=== PATIENT | female | born 1935 | race Caucasian/White ===

== ENCOUNTER 2020-01-20 12:23 | Outpatient (CLI) | payer MEDICARE, SELFPAY ==
[2020-01-20 13:05] LABS: Basophils Absolute Auto 0.1 K/mm3 (0.0-0.1); Basophils Percent Auto 0.8 % (0.2-1.2); Eosinophils Absolute Auto 0.1 K/mm3 (0-0.3); Eosinophils Percent Auto 1.2 % (0-4.4); Hematocrit 33.2 % (37.0-47.0); Hemoglobin 10.9 g/dL (12.0-15.0); Immature Granulocyte Absolute 0.01 K/mm3 (0.00-0.031); Immature Granulocyte Percent A 0.2 % (0-0.5); Lymphocytes Absolute Auto 1.98 K/mm3 (0.9-3.2); Lymphocytes Percent Auto 30.9 % (18.3-44.2); Mean Corpuscular HGB Conc 32.8 g/dl (32-36); Mean Corpuscular Hemoglobin 32.2 pg (26-34); Mean Corpuscular Volume 98.2 fl (80-100); Mean Platelet Volume 11.8 fl (7.4-10.4); Monocytes Absolute Auto 0.5 K/mm3 (0.1-0.6); Monocytes Percent Auto 7.5 % (2.6-8.5); Neutrophils Absolute Auto 3.8 K/mm3 (1.3-6.7); Neutrophils Percent Auto 59.4 % (45.5-73.1); Platelet Count Result 190 k/mm3 (150-375); Red Blood Count 3.38 M/mm3 (4.2-5.4); White Blood Count 6.4 K/mm3 (4.5-10.0)
[2020-01-20 13:07] LABS: Add Urine Microscopic? YES; Appearance Urine Clear (Clear); Bilirubin Urine Negative (Negative); Blood Urine Negative (Negative); Color Urine Straw (Yellow); Glucose Urine UA Negative (Negative); Ketones Urine Negative (Negative); Leukocyte Esterase Ur Negative LEU/UL (NEGATIVE); Mucus Urine Rare /lpf; Nitrate Urine Negative (Negative); Protein Urine Negative (Negative); Specific Grav Ur 1.013 (1.001-1.035); Squamous Epithelial Cell Urine Rare /hpf (Few); Urobilinogen Urine Negative mg/dL (<2.0); WBC Urine 0-3 /hpf (0-3)
[2020-01-20 13:48] LABS: Alanine Aminotransferase 9 U/L (4-35); Albumin Level 3.9 g/dL (3.5-5.1); Alkaline Phosphatase 64 U/L (38-126); Aspartate Amino Transferase 22 U/L (14-36); Bilirubin,Total 0.3 mg/dL (0.2-1.3); Blood Urea Nitrogen 25 mg/dL (7-17); CRP < 0.5 mg/dL (<1.0); Carbon Dioxide 24 mmol/L (22-30); Chloride 104 mmol/L (98-107); Cholesterol 193 mg/dL (0-200); Estimated Glomerular Filt Rate 53; Glucose 94 mg/dL (65-105); HDL Direct 64 mg/dL; Magnesium 1.8 mg/dL (1.6-2.3); Sodium 136 mmol/L (137-145); Triglycerides 265 mg/dL (<150)
[2020-01-20 13:53] LABS: LDL Cholesterol Direct 75 mg/dL
[2020-01-20 14:00] LABS: Free T4 Free Thyroxine 1.14 ng/mL (0.78-2.19)
[2020-01-20 14:12] LABS: Thyroid Stimulating Hormone 0.561 uIU/mL (0.465-4.680)
== END 2020-01-20 12:24 | disposition home or self-care (01) ==
PROVIDERS: PCP Internal Medicine; Visit Provider Internal Medicine
DX: E03.9 Hypothyroidism, unspecified (principal); I10 Essential (primary) hypertension; I25.10 Atherosclerotic heart disease of native coronary artery without angina pectoris; I49.9 Cardiac arrhythmia, unspecified
CPT/HCPCS: 36415; 80053; 80061; 81001; 83735; 84439; 84443; 85025; 86140

== ENCOUNTER 2020-01-21 08:30 | Outpatient (CLI) | payer MEDICARE, SELFPAY ==
--- NOTE | ~2020-01-21 | NM_ITS ---
EXAMINATION: NM herson stress w perfusion DATE: 01/21/2020 13:48 INDICATION: Abnormal electrocardiogram. TECHNIQUE: Rest images were obtained following intravenous administration of 9.3 mCi Tc99m tetrofosmi n (Myoview). The patient was infused intravenously with Lexiscan (regadenoson). Then, 27.0 mCi Tc99m tetrofosmin (Myoview) was administered intravenously, and stress images were obtained. Data was recon structed into short axis and horizontal and vertical long axis SPECT images. Gating was unsuccessful. COMPARISON: None. FINDINGS: There is no definite reversible or fixed perfusion abnormality to suggest ischemia or infar ction. There is no segmental wall motion abnormality. IMPRESSION: 1. No definite ischemia or infarct. 2. Ejection fraction was not measured due to unsuccessful gating. Reviewed, dictated and finalized at location A.
--- NOTE | 2020-01-21 08:57 | ECHO_ITS ---
Patient Info Name: Angie Awan Age: 84 years : 1935 Gender: Female Ht: 61 in Wt: 141 lbs BSA: 1.68 m2 HR: 73 bpm BP: 141 / 83 mmHg Technical Quality: Good Exam Date: 01/21/2020 9:03 AM Exam Location: [facility] Patient Status: Outpatient Admit Date: 01/21/2020 Staff Ordering Physician: Meliton Reid MD Emergency Department Manager: Clara Verma RDCS Attending Provider: Meliton Reid MD Referring Physician: Franklin CHO; Exam Type: CA echo doppler color flow Study Info Indications - htn cardiac arrthythmia Complete two-dimensional, color flow and Doppler transthoracic echocardiogram is performed. Summary 1. Left ventricular chamber dimension is normal. 2. Left ventricular systolic function is normal, estimated at 60-65%. 3. The left ventricular diastolic function is grade II diastolic dysfunction. 4. There is moderate aortic valve sclerosis. 5. There is trace aortic valve regurgitation. 6. There is trace mitral valve regurgitation. 7. There is mild tricuspid valve regurgitation. 8. Mild pulmonary hypertension, estimated pulmonary arterial systolic pressure is 44 mmHg. 9. Dilated inferior vena cava with >50% collapse upon inspiration consistent with elevated right atrial pressure, 10 mmHg. Left Ventricle Tissue doppler is not performed. Left ventricular chamber dimension is normal. Left ventricular systolic function is normal, estimated at 60-65%. The left ventricular diastolic function is grade II diastolic dysfunction. Right Ventricle Right ventricular chamber dimension is normal. Right ventricular systolic function is normal. Left Atria Left atrial chamber dimension is normal. Right Atria Right atrial chamber dimension is normal. Aortic Valve The aortic valve is trileaflet. There is moderate aortic valve sclerosis. There is no aortic valve stenosis. There is trace aortic valve regurgitation. Pulmonic Valve There is no pulmonic regurgitation. Mitral Valve There is no mitral valve stenosis. There is trace mitral valve regurgitation. Tricuspid Valve There is mild tricuspid valve regurgitation. Mild pulmonary hypertension, estimated pulmonary arterial systolic pressure is 44 mmHg. Pericardium/Pleural There is no pericardial effusion. Inferior Vena Cava Dilated inferior vena cava with >50% collapse upon inspiration consistent with elevated right atrial pressure, 10 mmHg. Aorta The aortic root size at the sinus of Valsalva is normal. Left Ventricular Outflow Tract Name Value Normal LVOT 2D LVOT Diameter 2.0 cm LVOT Doppler LVOT Peak Gradient 4 mmHg LVOT Mean Gradient 2 mmHg LVOT VTI 22 cm LVOT VTI/AV VTI Ratio 0.7 LVOT Stroke Volume 67 ml LVOT CO 12.6 l/min LVOT CI 7.5 l/min/m2 Pulmonic Valve Name Value Normal
--- NOTE | 2020-01-21 08:57 | EST_ITS ---
Patient Info Name: Angie Awan Age: 84 years : 1935 Gender: Female Ht: 61 in Wt: 141 lbs BSA: 1.68 m2 Exam Date: 01/21/2020 11:01 AM Exam Location: [facility] Stress Patient Status: Outpatient Admit Date: 01/21/2020 Staff Ordering Physician: Meliton Reid MD Attending Provider: Meliton Reid MD Exercise Technologist: Arnoldo Gruber RDCS, RT Exercise Physician: Tylor Dowell DO Exam Type: CA stress herson w NM Study Info A regadenoson stress test was performed. Summary 1. 1. Negative lexiscan stress test for ischemic ST changes by ECG criteria. 2. 2. Baseline hypertension. 3. 3. Nuclear scan to follow and will be reported separately. Please correlate with it. 4. 4. Patient informed of the above results. Protocol: Lexiscan Stress ECG Details Stage: REST Duration (min): 1 min : 33 sec HR (bpm): 78 SBP (mmHg): 170 DBP (mmHg): 98 Stage: REST Duration (min): 19 min : 43 sec HR (bpm): 85 SBP (mmHg): 170 DBP (mmHg): 98 Stage: STAGE 1 Duration (min): 1 min : 0 sec HR (bpm): 105 SBP (mmHg): 177 DBP (mmHg): 103 Stage: RECOVERY Duration (min): 1 min : 0 sec HR (bpm): 106 SBP (mmHg): 177 DBP (mmHg): 103 Stage: RECOVERY Duration (min): 2 min : 0 sec HR (bpm): 103 SBP (mmHg): 177 DBP (mmHg): 103 Stage: RECOVERY Duration (min): 3 min : 0 sec HR (bpm): 102 SBP (mmHg): 153 DBP (mmHg): 90 Stage: RECOVERY Duration (min): 3 min : 20 sec HR (bpm): 101 SBP (mmHg): 153 DBP (mmHg): 90 Rest HR: 85 bpm Peak HR: 108 bpm Rest Sys BP: 170 mmHg Peak Sys BP: 177 mmHg Max Pred HR: 135 bpm % Max Pred HR: 80 % Target HR: 115 bpm Max RPP: 19,116 bpm*mmHg Termination Reason: Completed protocol Cardiac Symptoms: Shortness of breath, Stomach discomfort Total Time: 1 min : 0 sec Rest Wallace BP: 98 mmHg Peak Wallace BP: 103 mmHg Total Dose: 0.4 mg Resting ECG Sinus rhythm with supraventricular bigeminy, IRBBB. Stress ECG No ST changes. Arrhythmias None. Report Signatures
--- NOTE | 2020-01-26 13:03 | WPDHOLTEREM ---
Holter/Event Monitor Holter/Event Monitor Date of procedure: 01/21/20 Procedure Type: 48 hour holter monitor Indications: Hypertension Conclusion: 1. 48 hour holter monitor on 01/26/20. 2. Predominant rhythm is sinus rhythm. HR range 53-128 bpm; average HR 80 bpm. 3. There are 12,309 premature supraventricular complexes, 586 supraventricular couplets, 23,651 supraventricular bigeminy and 1,231 supraventricular trigeminy. There are 79 episodes atrial tachycardia, fastest at 185 bpm and longest lasting 4 beats. 4. No premature ventricular complexes. No ventricular tachycardia. 5. No sinoatrial or atrioventricular blocks. No significant pauses greater than 2 seconds. 6. Patient reports symptoms of chest tightness and hard breathing which demonstrate sinus rhythm, HR range 87-105 bpm and some episodes of PAC's and supraventricular bigeminy.
== END 2020-01-21 08:31 | disposition home or self-care (01) ==
PROVIDERS: PCP Internal Medicine; Visit Provider Internal Medicine
DX: I10 Essential (primary) hypertension (principal); I25.10 Atherosclerotic heart disease of native coronary artery without angina pectoris; I49.9 Cardiac arrhythmia, unspecified; R94.31 Abnormal electrocardiogram [ECG] [EKG]
CPT/HCPCS: 78452; 93017; 93225; 93226; 93306; A9502; J2785

== ENCOUNTER 2020-02-09 11:00 | Outpatient (CLI) | payer MEDICARE, SELFPAY ==
[2020-02-09 11:30] LABS: Blood Urea Nitrogen 28 mg/dL (7-17); Calcium 9.4 mg/dL (8.4-10.2); Carbon Dioxide 29 mmol/L (22-30); Chloride 105 mmol/L (98-107); Estimated Glomerular Filt Rate 60; Glucose 101 mg/dL (65-105); Potassium 4.2 mmol/L (3.4-5.0); Sodium 138 mmol/L (137-145)
== END 2020-02-09 11:01 | disposition home or self-care (01) ==
LOC: ANHLAB 11:03
PROVIDERS: PCP Internal Medicine; Visit Provider Internal Medicine
DX: I27.20 Pulmonary hypertension, unspecified (principal)
CPT/HCPCS: 36415; 80048

== ENCOUNTER 2020-06-09 09:31 | Inpatient (IN) | payer MEDICARE, SELFPAY ==
[2020-06-09] VITALS (14 sets, daily range): BP systolic 117–154; BP diastolic 59–83; PULSE 69–95; RESP 12–20; TEMP 36.1–36.7; O2SAT 97–100; BMI 25.4
--- NOTE | ~2020-06-09 | XR_ITS ---
EXAMINATION: XR chest 2V DATE: 06/09/2020 10:47 INDICATION: Breast pressure, diaphoresis and hypotension TECHNIQUE: frontal and lateral views of the chest were obtained. COMPARISON: None FINDINGS: Mild reticular opacities at the bilateral lung bases most likely mild pulmonary edema or atelectasis with differential including less likely pneumonia. No pleural effusion or pneumothorax. The cardiomed iastinal silhouette is normal. Mild S-shaped thoracolumbar scoliosis with moderate spondylosis. Arlin cystectomy clips in the right upper quadrant. IMPRESSION: 1. Mild bibasilar reticular opacities and favor mild pulmonary edema and/or atelectasis over pneumoni a. Reviewed, dictated and finalized at location A. IMPRESSION: 1. Mild bibasilar reticular opacities and favor mild pulmonary edema and/or ate lectasis over pneumonia.
--- NOTE | ~2020-06-09 | CT_ITS ---
EXAMINATION: CT abdomen pelvis w con DATE: 06/09/2020 11:55 INDICATION: Epigastric abdominal pain. Vomiting. TECHNIQUE: Computed tomography (CT) of the abdomen and pelvis was performed with 100 mL Omnipaque 350 intravenous contrast. Automated exposure control and iterative reconstruction technique were employe d. The dose-length product was 377.03 mGy-cm. COMPARISON: None. FINDINGS: The visualized portions of the lung bases demonstrate mild atelectasis. There is mild emphy sema. No pleural effusion. The heart size is normal. There are coronary artery calcifications. There are calcifications of the aortic valve. No pericardial effusion. The liver demonstrates focal steatos is adjacent to the falciform ligament. Pneumobilia is noted, likely secondary to sphincterotomy. Ther e are changes of cholecystectomy. The spleen is normal. The pancreatic duct is dilated to 7 mm in the head of the pancreas. The adrenal glands are normal. There is cortical thinning of the kidneys. Ther e are bilateral inguinal hernias containing fat. There is wall thickening of the descending and sigmo id colon. There is liquid stool in the colon suggesting diarrhea. The appendix is normal. There are n o pathologically enlarged lymph nodes. There is a small volume of pelvic ascites. There are changes o f ventral hernia repair. There is severe thoracolumbar spondylosis. IMPRESSION: 1. Dilated pancreatic duct, likely chronic pancreatitis. 2. Mild wall thickening of the descending and sigmoid colon, consistent with colitis. Reviewed, dictated and finalized at location B. IMPRESSION: 1. Dilated pancreatic duct, likely chronic pancreatitis. 2. Mild wall thickening of the descending and sigmoid colon, consistent with co litis.
--- NOTE | 2020-06-09 09:42 | ECG_ITS ---
Measurements Intervals [place] Rate: 66 P: 37 SC: 144 QRS: 3 QRSD: 93 T: 43 QT: 404 QTc: 425 Interpretive Statements SINUS RHYTHM SUPRAVENTRICULAR BIGEMINY BASELINE ARTIFACT- II, III, AVL, AVF ABNORMAL ECG Electronically Signed On 06-09-2020 10:22:30 CDT by Tylor Dowell D.O.
--- NOTE | 2020-06-09 09:54 | ED.CHESTPAIN ---
HPI - Chest Pain General Chief Complaint: Chest Pain Stated Complaint: N/V/CP Time Seen by Provider: 06/09/20 09:34 Source: patient Mode of arrival: EMS Limitations: no limitations History of Present Illness HPI narrative: This patient is an 84 year old female who presents for evaluation of nausea , vomiting and chest pressure. PAtient states approximately 1 hour ago she developed nausea, vomiting , chest pressure. She states this occurred 1 hours after eating her breakfast. She states she was washing her dishes when she developed a sensation to have a bowel movement. While she was sitting on the toilet, she developed nausea, sweating and chest pressure. She had multiple episodes of vomiting. She states she has had similar episodes over the past few months, but she thought it was the flu. She has also been evaluated by her PCP, Dr. Reid, and she has had a stress test and echo. She was told she had an issue with a valve and she was started on carvedilol. Related Data Home Medications Medication Instructions Recorded Confirmed aspirin 81 mg tablet,delayed 81 mg PO DAILY 01/27/20 06/09/20 release acetaminophen [Tylenol Extra 1,000 mg PO TID 06/09/20 06/09/20 Strength] lidocaine 1 patch TOPICAL DAILY PRN 06/09/20 06/09/20 Allergies Allergy/AdvReac Type Severity Reaction Status Date / Time pregabalin [From Lyrica] Allergy Mild edema Verified 06/09/20 16:25 amoxicillin Allergy Unknown ITCHING Verified 06/09/20 16:25 nifedipine Allergy Unknown VOMITING Verified 06/09/20 16:25 gabapentin AdvReac Mild edema Verified 06/09/20 16:25 Review of Systems Review of Systems: All systems reviewed & are unremarkable except as noted in HPI and below Constitutional: Constitutional: Reports weakness Cardiovascular: Cardiovascular: Reports chest pain Respiratory: Respiratory: Denies cough, Denies dyspnea and Denies wheezing Gastrointestinal: Gastrointestinal: Denies diarrhea, Reports nausea and Reports vomiting PMFSH Past Medical History Medical History (Updated 06/09/20 @ 19:17 by Fanny Queen MD) Abnormal EKG Anemia Arrhythmia ASHD (arteriosclerotic heart disease) BMI 27.0-27.9,adult Costochondritis DJD (degenerative joint disease) Follow up Grade II diastolic dysfunction HTN (hypertension) Hyperlipidemia Hypothyroidism Left chest pressure Light-headedness Low back pain Pulmonary hypertension Resting tremor Spinal stenosis SVT (supraventricular tachycardia) Surgical History Surgical History H/O: hysterectomy History of bunionectomy History of tonsillectomy and adenoidectomy Hx laparoscopic cholecystectomy Social History Social History (Updated 01/20/20 @ 11:30 by Jenn Pearce LPN) Smoking status: Never smoker Second hand tobacco smoke exposure: No Alcohol intake: never Substance use: never Gender identity (if verbalized by the patient): Female Spiritual care concerns: No Exam Const: General: no acute distress and alert Orientation/consciousness: patient oriented x3 HENMT: Face and sinus: face symmetric Throat: posterior oropharynx normal and uvula midline Eyes: Pupils: Equal, round and reactive pupils present EOM: EOMs intact bilaterally Neck: Neck: normal visual inspection Chest: Chest palpation & inspection: normal inspection of the chest Resp: Effort & Inspection: normal respiratory effort, no retractions and no use of accessory muscles Auscultation: clear to auscultation bilaterally Cardio: Rate: regular rate Rhythm: regular rhythm Heart sounds: Murmur heart sound present GI: GI Palp: Yes Soft to palpation, Yes Tenderness to palpation present (GI) (epigastric), No Guarding due to palpation present (GI) and No Rigid due to palpation Auscultation: normal bowel sounds Skin: General skin exam: normal color Rashes: no rashes Neuro: General: patient oriented x3 and moves all extremities Psych:
[2020-06-09 10:12] LABS: Basophils Absolute Auto 0.1 K/mm3 (0.0-0.1); Basophils Percent Auto 0.8 % (0.2-1.2); Eosinophils Absolute Auto 0.1 K/mm3 (0-0.3); Eosinophils Percent Auto 1.5 % (0-4.4); Hematocrit 36.1 % (37.0-47.0); Immature Granulocyte Absolute 0.02 K/mm3 (0.00-0.031); Immature Granulocyte Percent A 0.3 % (0-0.5); Lymphocytes Absolute Auto 1.86 K/mm3 (0.9-3.2); Lymphocytes Percent Auto 30.3 % (18.3-44.2); Mean Corpuscular HGB Conc 33.2 g/dl (32-36); Mean Corpuscular Hemoglobin 32.4 pg (26-34); Mean Corpuscular Volume 97.6 fl (80-100); Mean Platelet Volume 10.2 fl (7.4-10.4); Monocytes Absolute Auto 0.2 K/mm3 (0.1-0.6); Monocytes Percent Auto 3.9 % (2.6-8.5); Neutrophils Absolute Auto 3.9 K/mm3 (1.3-6.7); Neutrophils Percent Auto 63.2 % (45.5-73.1); Platelet Count Result 273 k/mm3 (150-375); White Blood Count 6.1 K/mm3 (4.5-10.0)
[2020-06-09 10:20] LABS: Prothrombin Time 12.6 Seconds (11.1-14.7)
[2020-06-09 10:21] LABS: Partial Thromboplastin Time 21.9 SECONDS (22.3-36.8)
[2020-06-09 10:26] LABS: Alanine Aminotransferase 13 U/L (4-35); Albumin Level 3.9 g/dL (3.5-5.1); Alkaline Phosphatase 64 U/L (38-126); Anion Gap 9 mmol/L (8-16); Aspartate Amino Transferase 29 U/L (14-36); Bilirubin,Total 0.6 mg/dL (0.2-1.3); Blood Urea Nitrogen 25 mg/dL (7-17); Calcium 9.1 mg/dL (8.4-10.2); Carbon Dioxide 21 mmol/L (22-30); Chloride 108 mmol/L (98-107); Estimated CRCL calculation 29 ml/min; Estimated Glomerular Filt Rate 53; Glucose 151 mg/dL (65-105); Lipase 529 U/L (23-300); Potassium 3.8 mmol/L (3.4-5.0); Sodium 138 mmol/L (137-145)
[2020-06-09 10:37] LABS: Troponin I < 0.012 ng/mL (0.000-0.034)
[2020-06-09] MEDS: metroNIDAZOLE 500 MG/ISO 100ML 500 MG/100 ML BAG 100 MG IVPB (12:46)
[2020-06-09 13:22] LABS: Troponin I < 0.012 ng/mL (0.000-0.034)
[2020-06-09] MEDS: SODIUM CHLORIDE 0.9% IV 1,000 ML 125 ML IV CONT (15:54)
--- NOTE | 2020-06-09 16:23 | ADMGEN ---
This patient, Angie Awan, was admitted to IMU Room 231-01 on 06-09-2020 at 1425. Patient/family oriented to hospital policies and general routines including ID bracelet, bed and alarms, visiting hours, pain management, procedures, bathroom and other care routines, personal items, smoking policy, room service/diet, and visiting hours. Valuables list has been completed. Information on how to activate the Rapid Response Team has been discussed. Patient/Family are encouraged to report perceived risks to care and to ask questions if they do not understand what they are told or what they should do.
--- NOTE | 2020-06-09 17:30 | PM.IMHP ---
H&P: HPI History of Present Illness Date/Time: 06/09/20 17:00 Chief complaint: Nausea, vomiting, diarrhea. Narrative: Angie Awan is a pleasant 84-year-old female with GERD, hypertension, hyperlipidemia, hypothyroidism, and spinal stenosis with chronic back pain who presented to the emergency department earlier this morning via EMS from home for evaluation of nausea, vomiting, and diarrhea. She was in her usual state of health when she woke this morning and had breakfast to consist of a scrambled egg, 2 cups of black coffee, and a doughnut, which took the place of her usual toast. Perhaps an hour after eating breakfast and while cleaning up the kitchen she developed extreme nausea, perfused sweats, and mild midsternal heaviness. Shortly thereafter her stomach started to cramp and she had 3 violent episodes of emesis and diarrhea. She was lightheaded thereafter and some how made it to the living room to take her blood pressure, which was reportedly 55/22. eventually she called the ambulance as she was unable to get a hold of her children, and she was brought in for evaluation. Blood pressure on EMS arrival was 82/64, and she was given aspirin and Zofran. It is noted that she told EMS that her chest pressure was rated 10/10, however she tells me that she was not having pain in that the heaviness was mild. Her EKG and troponins were unremarkable but she was found to have evidence of chronic pancreatitis on CT of the abdomen and pelvis as well as mild wall thickening of the descending and sigmoid colon consistent with colitis. With further questioning, she reports having an episode of pancreatitis a little over 10 years ago after an EGD (although it sounds as though she may have had an ERCP at that time) and she goes on to say that this episode that she had today is not at all similar to when she had the pancreatitis. Additionally, she mentions that this is the 3rd episode of the symptoms since Sunday, and they have all occurred after breakfast. Currently she has no active complaints. She denies fever, chills, and sweats. No recent travel, sick contacts, or antibiotic use. She has not had exertional chest pain in fact reports having and negative stress test within the past several months. Interestingly, she denies GERD and indigestion symptoms and has no history of gastritis or ulcers. She noticed no blood or mucus in her stool and has not had loose stools prior to today. No hematemesis, melena, or hematochezia. Review of Systems Review of Systems: Narrative: Twelve systems were reviewed with pertinent positives and negatives as per HPI. No headache or vertigo. No focal weakness or paresthesias. She denies orthopnea, PND, and lower extremity edema. She will get somewhat short of breath when walking to the mailbox and back, but reports that it is a long driveway and does have an incline. This is not new and is unchanged. She denies cough. No dysuria. Except as documented, all other systems were reviewed and are negative. [facility] Past Medical History Medical History (Updated 06/09/20 @ 20:54 by Roseann Belcher PA-C) Anemia Gastroesophageal reflux disease Grade II diastolic dysfunction Echocardiogram in January 2020 showed normal left ventricular chamber size and dimension with normal systolic function and an estimated ejection fraction of 60 to 65%. Grade 2 diastolic dysfunction also noted. Hyperlipidemia Hypertension Hypothyroidism Pulmonary hypertension Echocardiogram in January 2020 showed mild pulmonary hypertension with an estimated pulmonary arterial systolic pressure of 44 mmHg. Resting tremor Spinal stenosis With chronic low back pain for which she receives epidural injections on occasion. Surgical History Surgical History (Updated 06/09/20 @ 20:37 by Roseann Belcher PA-C) History of bunionectomy of both great toes History of hysterectomy History of laparoscopic cholecystectomy History of squamous cell carcinoma exc
[2020-06-09] MEDS: ACETAMINOPHEN 500 MG TABLET 1000 MG PO (22:11)
[2020-06-09] MEDS: carvediloL 6.25 MG TABLET PO (22:12)
[2020-06-10] VITALS (13 sets, daily range): BP systolic 122–144; BP diastolic 57–75; PULSE 72–88; RESP 18–20; TEMP 36.3–37.1; O2SAT 96–100
[2020-06-10] MEDS: SODIUM CHLORIDE 0.9% IV 1,000 ML 75 ML IV CONT (02:24)
[2020-06-10 05:08] LABS: Basophils Percent Auto 0.6 % (0.2-1.2); Eosinophils Absolute Auto 0.1 K/mm3 (0-0.3); Eosinophils Percent Auto 0.9 % (0-4.4); Hematocrit 30.7 % (37.0-47.0); Hemoglobin 10.2 g/dL (12.0-15.0); Immature Granulocyte Absolute 0.02 K/mm3 (0.00-0.031); Immature Granulocyte Percent A 0.3 % (0-0.5); Lymphocytes Absolute Auto 1.66 K/mm3 (0.9-3.2); Lymphocytes Percent Auto 23.7 % (18.3-44.2); Mean Corpuscular HGB Conc 33.2 g/dl (32-36); Mean Corpuscular Hemoglobin 32.2 pg (26-34); Mean Corpuscular Volume 96.8 fl (80-100); Mean Platelet Volume 10.4 fl (7.4-10.4); Monocytes Absolute Auto 0.6 K/mm3 (0.1-0.6); Neutrophils Absolute Auto 4.7 K/mm3 (1.3-6.7); Neutrophils Percent Auto 66.5 % (45.5-73.1); Platelet Count Result 221 k/mm3 (150-375); Red Blood Count 3.17 M/mm3 (4.2-5.4)
[2020-06-10 05:29] LABS: Alanine Aminotransferase 11 U/L (4-35); Albumin Level 3.3 g/dL (3.5-5.1); Alkaline Phosphatase 51 U/L (38-126); Anion Gap 5 mmol/L (8-16); Aspartate Amino Transferase 24 U/L (14-36); Bilirubin,Total 0.4 mg/dL (0.2-1.3); Blood Urea Nitrogen 18 mg/dL (7-17); Calcium 8.5 mg/dL (8.4-10.2); Carbon Dioxide 22 mmol/L (22-30); Chloride 110 mmol/L (98-107); Estimated CRCL calculation 32 ml/min; Estimated Glomerular Filt Rate 60; Glucose 102 mg/dL (65-105); Lipase 226 U/L (23-300); Magnesium 1.4 mg/dL (1.6-2.3); Potassium 3.8 mmol/L (3.4-5.0); Sodium 137 mmol/L (137-145)
[2020-06-10] MEDS: ACETAMINOPHEN 500 MG TABLET 1000 MG PO ×3 (06:20→20:59)
[2020-06-10] MEDS: LEVOTHYROXINE SODIUM 50 MCG TABLET PO (06:20)
--- NOTE | 2020-06-10 06:23 | PC.NURSE ---
06/10/20:0623: patient c/o chest pressure that lasted a couple seconds. she states that she had 3 episodes during the night and was told by lalo to tell us. but she forgets to tell us until much later after the event is done.
[2020-06-10] MEDS: PANTOPRAZOLE SODIUM IV 40 MG VIAL IV PUSH (08:49)
[2020-06-10] MEDS: MAGNESIUM SULF 2 GM/WATER 50ML 2 GM/50 ML BAG IVPB (08:50)
[2020-06-10] MEDS: CYANOCOBALAMIN 1,000 MCG TABLET 1000 MCG PO (08:55)
[2020-06-10] MEDS: carvediloL 6.25 MG TABLET PO ×2 (08:55→20:59)
[2020-06-10] MEDS: lisinopriL 10 MG TABLET PO (08:55)
[2020-06-10] MEDS: POTASSIUM CHLORIDE 10 MEQ TABLET.ER PO (08:55)
[2020-06-10] MEDS: ASPIRIN 81 MG ENTERIC TABLET PO (08:56)
[2020-06-10] MEDS: ATORVASTATIN 20 MG TABLET PO (08:56)
[2020-06-10] MEDS: FUROSEMIDE 20 MG TABLET PO (08:56)
[2020-06-10] MEDS: CHOLECALCIFEROL 1,000 UNITS TABLET 1000 UNITS PO (08:56)
--- NOTE | 2020-06-10 11:38 | PM.IMPN ---
Progress Note: A&P Assessment and Plan (1) Colitis: Code(s): K52.9 - Noninfective gastroenteritis and colitis, unspecified Status: Acute Assessment and Plan: CT abd/pelvis revealed mild wall thickening of the descending and sigmoid colon, consistent with colitis. She has tenderness to the LLQ on physical exam. I suspect that her nausea, vomiting, and diarrhea are due to colitis. She received levaquin and metronidazole in the ED. The case was discussed with GI and we will plan to resume IV levaquin and IV flagyl. GI input is appreciated. Differential includes infectious versus ischemic etiology. She has improved significantly. Continue conservative management with zofran as needed for nausea and analgesics as needed for pain. Stool cultures and occult stool testing were ordered and are pending should she have additional diarrhea. Plan to advance diet as tolerated. (2) Chest discomfort: Code(s): R07.89 - Other chest pain Status: Acute Assessment and Plan: Her chest discomfort is not consistent with acute coronary syndrome as serial troponins were negative and EKG had no ST/T changes. She had a Lexiscan stress test done in spring 2019 which was negative for ischemia as well as an echocardiogram which showed normal LV systolic function with EF 60-65% and grade II diastolic dysfunction. Her pain is reproducible to palpation. She was diagnosed with costochondritis by her PCP and reports relief with ice/heat and lidocaine patches. Plan to continue supportive care. Continue telemetry and monitor for any new symptoms. (3) Dehydration: Code(s): E86.0 - Dehydration Status: Resolved Assessment and Plan: She received judicious IV fluid rehydration. She appears adequately hydrated and is tolerating PO intake well. She has no significant ongoing GI losses at this time. Plan to discontinue IV fluids. (4) Abnormal computed tomography of abdomen and pelvis: Code(s): R93.5 - Abnormal findings on diagnostic imaging of other abdominal regions, including retroperitoneum Status: Acute Assessment and Plan: CT of the abdomen and pelvis shows dilated pancreatic duct, likely chronic pancreatitis as well as colitis. Dr. Rodrigez is on board and input is appreciated. Lipase and LFTs are normal. Her sx are felt to be due to colitis. (5) Hypertension: Code(s): I10 - Essential (primary) hypertension Status: Chronic Assessment and Plan: She was hypotensive on EMS arrival, likely related to significant fluid loss with vomiting and diarrhea. She also may have had a component of the vagal response as well. Blood pressures have normalized and are stable. Her antihypertensives were resumed today. Blood pressures were reviewed and at target. Plan to continue carvedilol, furosemide, and lisinopril. (6) Gastroesophageal reflux disease: Code(s): K21.9 - Gastro-esophageal reflux disease without esophagitis Status: Chronic Assessment and Plan: Chronic with no acute issues. Continue omeprazole. (7) Hypothyroidism: Code(s): E03.9 - Hypothyroidism, unspecified Status: Chronic Assessment and Plan: Chronic with no acute issues. Plan to check TSH. Continue levothyroxine. Subjective Date/time seen: 06/10/20 11:38 Interval history: Mrs. Awan is an 84 y.o. female who is seen in follow-up for colitis. She reports no further episodes of emesis or nausea today. She had one small bowel movement which she reports was mucous with dark brown/red substance which appeared to be blood. She reports no further episodes of diarrhea today. She is tolerating a full liquid diet well. She denies fever and chills. She has no urinary complaints. She reports a mld headache which resolved with tylenol. She reports a few brief episodes of chest discomfort which is reproducible to touch, non-radiating, and not associated with palpitations or dyspnea
--- NOTE | 2020-06-10 11:46 | WPDGICN ---
Assessment and Plan Assessment and plan (1) Colitis: Code(s): K52.9 - Noninfective gastroenteritis and colitis, unspecified Status: Acute Assessment and Plan: could be inectious but also ischemic is in differential, empirically on antibiotics if more diarrhea then check stool studies liquid diet for now and advance as tolerated (2) Dehydration: Code(s): E86.0 - Dehydration Status: Acute Assessment and Plan: treated with fluids, she was lightheaded on presentation with hypotension, better now (3) Nausea & vomiting: Code(s): R11.2 - Nausea with vomiting, unspecified Status: Acute Assessment and Plan: improved (4) Abnormal computed tomography of abdomen and pelvis: Code(s): R93.5 - Abnormal findings on diagnostic imaging of other abdominal regions, including retroperitoneum Status: Acute (5) Chronic pancreatitis: Code(s): K86.1 - Other chronic pancreatitis Status: Acute Assessment and Plan: lipase and liver enzymes normal, I think symptoms mostly from colitis GI Consult Note Consult date/time: 06/10/20 11:46 Reason for consult: diarrhea, n/v HPI: Angie Awan is a 84 year old female with history of GERD, hypertension, hyperlipidemia, hypothyroidism, and spinal stenosis who came to the emergency department via EMS from home after nausea, vomiting, and diarrhea. Yesterday morning about 1 hour after having breakfast she developed extreme nausea, sweating, and mild midsternal heaviness. Then had abdominal cramping with 3 episodes of emesis and violent diarrhea. She was lightheaded, then took her blood pressure at home which was low 55/22. She called the ambulance and brought here. Now she is feeling better, less nauseous, some chest discomfort. CT scan showed left sided colitis, also dilated PD probably consistent with chronic pancreatitis (she remembers having scope ? ERCP about 50 years ago and admitted for pancreatitis but none since then). She had 2 similar episodes like these earlier this year. Liver enzymes and lipase normal, also troponins. Review of Systems Constitutional: Constitutional: Reports chills and Denies headache(s) Eyes: Eyes: Denies blurry vision ENT: Reports Normal hearing present, Denies headache(s) and Denies neck pain Cardiovascular: Cardiovascular: Denies chest pain, Reports lightheadedness and Denies dyspnea Respiratory: Respiratory: Denies dyspnea Gastrointestinal: Gastrointestinal: Reports diarrhea, Reports nausea and Reports vomiting Genitourinary: Genitourinary: Denies dysuria Musculoskeletal: Musculoskeletal: Denies neck pain Integumentary/Breasts: Skin/Breast: Denies dry skin Neurologic: Reports Normal hearing present, Denies headache(s) and Denies weakness Psychiatric: Psychiatric: Denies anxiety Endocrine: Endocrine: Denies change in body appearance Hematologic/Lymphatic: Hematologic/Lymphatic: Denies easy bleeding Allergic/Immunologic: Allergic/Immunologic: Denies urticaria PMFSH Past Medical History Medical History (Updated 06/10/20 @ 11:52 by Meliton Rodrigez MD) Anemia Colitis Gastroesophageal reflux disease Grade II diastolic dysfunction Echocardiogram in January 2020 showed normal left ventricular chamber size and dimension with normal systolic function and an estimated ejection fraction of 60 to 65%. Grade 2 diastolic dysfunction also noted. Hyperlipidemia Hypertension Hypothyroidism Pulmonary hypertension Echocardiogram in January 2020 showed mild pulmonary hypertension with an estimated pulmonary arterial systolic pressure of 44 mmHg. Resting tremor Spinal stenosis With chronic low back pain for which she receives epidural injections on occasion. Surgical History Surgical History (Updated 06/09/20 @ 20:37 by Roseann Belcher PA-C) History of bunionectomy of both great toes History of hysterectomy History of laparoscopic cholecystectomy History of squamous cell c
--- NOTE | 2020-06-10 13:21 | PC.NURSE ---
This patient, Angie Awan, was received from [ imu] on 06/10/20 at 1320. Report given by Laura. Personal belongings list checked and signed. Patient/family oriented to unit policies and routines
[2020-06-10] MEDS: metroNIDAZOLE 500 MG/ISO 100ML 500 MG/100 ML BAG 100 MG IVPB ×2 (13:31→20:30)
--- NOTE | 2020-06-10 13:55 | PC.NURSE ---
This patient, Angie Awan, was transferred to [facility] on 06/10/20 at 1310. Personal belongings sent with patient. Belongings list checked and signed with receiving. Report given to OMAR Lynch. Appropriate documentation sent with patient.
[2020-06-11] MEDS: metroNIDAZOLE 500 MG/ISO 100ML 500 MG/100 ML BAG 100 MG IVPB ×2 (05:00→11:14)
[2020-06-11 06:00] VITALS: BP 125/62; PULSE 77; RESP 18; TEMP 36.5; O2SAT 97
[2020-06-11] MEDS: ACETAMINOPHEN 500 MG TABLET 1000 MG PO ×2 (06:14→14:04)
[2020-06-11] MEDS: LEVOTHYROXINE SODIUM 50 MCG TABLET PO (06:14)
[2020-06-11 07:01] LABS: Hematocrit 31.5 % (37.0-47.0); Hemoglobin 10.6 g/dL (12.0-15.0); Mean Corpuscular HGB Conc 33.7 g/dl (32-36); Mean Corpuscular Hemoglobin 32.8 pg (26-34); Mean Corpuscular Volume 97.5 fl (80-100); Mean Platelet Volume 10.3 fl (7.4-10.4); Platelet Count Result 237 k/mm3 (150-375); Red Blood Count 3.23 M/mm3 (4.2-5.4); Red Cell Distribution Width 13.2 % (11.5-14.5); White Blood Count 5.7 K/mm3 (4.5-10.0)
[2020-06-11 07:23] LABS: Alanine Aminotransferase 11 U/L (4-35); Albumin Level 3.5 g/dL (3.5-5.1); Alkaline Phosphatase 52 U/L (38-126); Anion Gap 5 mmol/L (8-16); Aspartate Amino Transferase 24 U/L (14-36); Bilirubin,Total 0.4 mg/dL (0.2-1.3); Blood Urea Nitrogen 12 mg/dL (7-17); Calcium 8.9 mg/dL (8.4-10.2); Carbon Dioxide 24 mmol/L (22-30); Chloride 108 mmol/L (98-107); Estimated CRCL calculation 32 ml/min; Estimated Glomerular Filt Rate 60; Glucose 104 mg/dL (65-105); Potassium 4.2 mmol/L (3.4-5.0); Sodium 137 mmol/L (137-145)
[2020-06-11 08:00] VITALS: BP 121/51; PULSE 73; RESP 18; TEMP 36.8; O2SAT 98
[2020-06-11 08:50] VITALS: PULSE 72
[2020-06-11] MEDS: lisinopriL 10 MG TABLET PO (08:50)
[2020-06-11] MEDS: carvediloL 6.25 MG TABLET PO (08:50)
[2020-06-11] MEDS: ASPIRIN 81 MG ENTERIC TABLET PO (08:50)
[2020-06-11] MEDS: CYANOCOBALAMIN 1,000 MCG TABLET 1000 MCG PO (08:50)
[2020-06-11] MEDS: POTASSIUM CHLORIDE 10 MEQ TABLET.ER PO (08:50)
[2020-06-11] MEDS: FUROSEMIDE 20 MG TABLET PO (08:50)
[2020-06-11] MEDS: PANTOPRAZOLE SODIUM IV 40 MG VIAL IV PUSH (08:50)
[2020-06-11] MEDS: CHOLECALCIFEROL 1,000 UNITS TABLET 1000 UNITS PO (08:50)
[2020-06-11] MEDS: ATORVASTATIN 20 MG TABLET PO (08:51)
[2020-06-11 12:09] LABS: Magnesium 1.9 mg/dL (1.6-2.3)
--- NOTE | 2020-06-11 12:47 | PC.NURSE ---
Patient did not receive 1200 dose of Levaquin IV. Patients IV access went bad , switching to P.O dose.
--- NOTE | 2020-06-11 13:28 | WPDGIPROGNO ---
Progress Note: A&P Assessment and Plan (1) Colitis: Code(s): K52.9 - Noninfective gastroenteritis and colitis, unspecified Status: Acute Assessment and Plan: improved, no more diarrhea. ? ischemic vs infectious but she is much better now ok to go home with soft diet 5 days of antibiotics follow up office in 3-4 weeks, then we can discuss if may need a colonoscopy (only if more episodes), she had one about 5 years ago (2) Nausea & vomiting: Code(s): R11.2 - Nausea with vomiting, unspecified Status: Acute Assessment and Plan: resolved (3) Chest discomfort: Code(s): R07.89 - Other chest pain Status: Acute Assessment and Plan: improved (4) Chronic pancreatitis: Code(s): K86.1 - Other chronic pancreatitis Status: Acute Subjective Date/time seen: 06/11/20 13:28 Interval history: she is not having more diarrhea, still some chest discomfort but no more nausea actually tolerating diet. She is feeling like going home today. Daughter is at bedside. Review of Systems Review of Systems: All systems reviewed & are unremarkable except as noted in HPI and below Exam Const: General: comfortable and no acute distress HENMT: General nose exam: Normal nares present Eyes: General: appearance normal, both eyes and all related structures Neck: Neck: no JVD Resp: Auscultation: clear to auscultation bilaterally Cardio: Rate: regular rate Rhythm: regular rhythm GI: Inspection: non-distended GI Palp: Yes Soft to palpation Skin: General skin exam: normal color Neuro: General: gait normal Speech: normal speech Extrem: General: normal to inspection Psych: Mental Status: mental status grossly normal Objective Data Vital Signs Vital Signs: Vital Signs - 24 hr 06/10/20 19:35 06/10/20 20:59 06/10/20 22:00 Temperature 97.4 F L Pulse Rate 74 78 Respiratory Rate 18 Blood Pressure 130/64 Pulse Oximetry 98 98 06/11/20 06:00 06/11/20 08:50 Temperature 97.7 F Pulse Rate 77 72 Respiratory Rate 18 Blood Pressure 125/62 Pulse Oximetry 97 Intake/Output Intake/Output: Intake & Output 06/08/20 06/09/20 06/10/20 06/11/20 23:59 23:59 23:59 23:59 Intake Total 490 3656 540 Output Total 100 2550 850 Balance 390 1106 -310 Meds/Results Medications: Active Medications Generic Name Dose Route Start Last Admin Trade Name Freq PRN Reason Stop Dose Admin Acetaminophen 1,000 mg 06/09/20 21:20 06/11/20 06:14 Tylenol Tablet PO 1,000 mg 0600,1400,2100 SILVIO Administration Aspirin 81 mg 06/10/20 09:00 06/11/20 08:50 Aspirin Ec PO 81 mg DAILY SILVIO Administration Atorvastatin Calcium 20 mg 06/10/20 09:00 06/11/20 08:51 Lipitor PO 20 mg DAILY SILVIO Administration Carvedilol 6.25 mg 06/09/20 21:15 06/11/20 08:50 Coreg PO 6.25 mg Q12HR SILVIO Administration Cyanocobalamin 1,000 mcg 06/10/20 09:00 06/11/20 08:50 Vitamin B-12 Tab PO 1,000 mcg QAM [facility] Administration Furosemide 20 mg 06/10/20 09:00 06/11/20 08:50 Lasix Tablet PO 20 mg QAM [facility] Administration Metronidazole 500 mg in 100 mls @ 100 mls/hr 06/10/20 12:00 06/11/20 11:14 Flagyl 500 Mg/Iso Soln 100 Ml IVPB 100 mls/hr Q8H [facility] Administration Levofloxacin/Dextrose 750 mg in 150 mls @ 100 mls/hr 06/11/20 12:00 06/11/20 12:47 Levaquin 750 Mg/D5w 150 Ml IVPB Infused Q48H [facility] Infusion Levothyroxine Sodium 50 mcg 06/10/20 06:30 06/11/20 06:14 Synthroid PO 50 mcg DAILY@0630 [facility] Administration Lidocaine 1 patch 06/09/20 20:59 Lidoderm TOPICAL DAILY PRN Back pain Lisinopril 10 mg 06/10/20 09:00 06/11/20 08:50 Prinivil PO 10 mg DAILY [facility] Administration Nitroglycerin 0.4 mg 06/09/20 20:59 Nitrostat Subl 0.4 Mg (1/150) SUBLINGUAL Q5M PRN chest pain Ondansetron HCl 4 mg 06/09/20 12:34 Zofran Inj IV PUSH Q4H PRN Nausea Pantoprazole
--- NOTE | 2020-06-11 15:36 | PM.DS ---
DS: Admitting Diagnosis Admitting Diagnosis Admitting Diagnosis: Nausea, vomiting, diarrhea. DS: Discharge Diagnosis Discharge Diagnosis (1) Colitis: Code(s): K52.9 - Noninfective gastroenteritis and colitis, unspecified Status: Acute Assessment and Plan: Discharge Summary (Date of service 06/11/20): Mrs. Awan is an 84 y.o. female with PMH significant for GERD, hypertension, hyperlipidemia, hypothyroidism, and spinal stenosis with chronic back pain who presented to the emergency department for the evaluation of nausea, vomiting, and diarrhea. She reported that she ate her breakfast subsequently developed sweats, nausea, vomiting, diarrhea and midsternal heaviness. She reported that her BP was low at 55/22 when she checked it with her automatic BP cuff. On EMS arrival, BP was 82/64. She reported three similar episodes since 2019. Initial workup in the ED included CT abd/pelvis which demonstrated mild wall thickening of the descending and sigmoid colon, consistent with colitis. EKG and troponin were negative for acute ischemia. She was treated with IV levaquin and IV flagyl in the emergency department for presumed colitis and admitted to the hospitalist service. GI was consulted and recommended continued IV antibiotic therapy. Her diet was advanced slowly. She had no further vomiting or diarrhea. She improved significantly and was cleared for discharge from a GI standpoint. She was discharged on PO antibiotics. She had no further hypotension and blood pressures were stable on her PO antihypertensive regimen. Her episode of hypotension was felt to be due to volume depletion vs. vagal response. She was advised to monitor her blood pressure closely at home. She was discharged in stable condition on the afternoon of 06/11/20. (2) Chest discomfort: Code(s): R07.89 - Other chest pain Status: Acute Assessment and Plan: Her chest discomfort was not consistent with acute coronary syndrome as serial troponins were negative and EKG had no ST/T changes. She had a Lexiscan stress test performed 01/2020 which was negative for ischemia as well as an echocardiogram which showed normal LV systolic function with EF 60-65% and grade II diastolic dysfunction. Her pain is reproducible to palpation. She was diagnosed with costochondritis by her PCP and reports relief with ice/heat and lidocaine patches. Supportive care was continued. (3) Dehydration: Code(s): E86.0 - Dehydration Status: Resolved Assessment and Plan: She received judicious IV fluid rehydration initially as she had significant GI losses prior to admission. IV fluids were discontinued once she was felt to be adequately hydrated and tolerating PO intake. (4) Abnormal computed tomography of abdomen and pelvis: Code(s): R93.5 - Abnormal findings on diagnostic imaging of other abdominal regions, including retroperitoneum Status: Acute Assessment and Plan: CT of the abdomen and pelvis shows dilated pancreatic duct, likely chronic pancreatitis as well as colitis. Lipase and LFTs were normal. Dr. Rodrigez was consulted for these findings and recommended antibiotic therapy for her colitis. She will follow-up with GI outpatient. (5) Hypertension: Code(s): I10 - Essential (primary) hypertension Status: Chronic Assessment and Plan: She reported hypotension at home on EMS arrival. This was likely related to significant fluid loss with vomiting and diarrhea versus vagal episode. Blood pressures normalized at presentation the the emergency department. Her prior to admission antihypertensives (furosemide, carvedilol, and lisinopril) and BP was monitored and stable. (6) Gastroesophageal reflux disease: Code(s): K21.9 - Gastro-esophageal reflux disease without esophagitis Status: Chronic Assessment and Plan: PPI was continued. (7) Hypothyroidism: Code(s): E03.9
[2020-06-11] MEDS: CIPROFLOXACIN 250 MG TABLET PO (16:57)
== END 2020-06-11 17:10 | disposition home or self-care (01) | DRG 392 ==
LOC: ANHED 11:13 → ANHIMU 14:09 → ANH3MEDSUR 06-10 13:04
PROVIDERS: Physician Assistant; Admitting Provider Internal Medicine; Emergency Provider General Practice; PCP Internal Medicine; Visit Provider Internal Medicine
DX: K52.9 Noninfective gastroenteritis and colitis, unspecified (principal); I27.20 Pulmonary hypertension, unspecified; E86.0 Dehydration; M94.0 Chondrocostal junction syndrome [Tietze]; R93.5 Abnormal findings on diagnostic imaging of other abdominal regions, including retroperitoneum; K21.9 Gastro-esophageal reflux disease without esophagitis; I10 Essential (primary) hypertension; E78.5 Hyperlipidemia, unspecified; E03.9 Hypothyroidism, unspecified; R25.1 Tremor, unspecified; M48.00 Spinal stenosis, site unspecified; M54.5 Low back pain; G89.29 Other chronic pain; Z79.82 Long term (current) use of aspirin; Z79.899 Other long term (current) drug therapy
CPT/HCPCS: 36415; 71046; 74177; 80048; 80053; 80076; 83690; 83735; 84443; 84484; 85025; 85027; 85610; 85730; 93005; 96361; 96365; 96366; 96367; 96375; 99285; A9270; C9113; G0378; J1956; J3475; J7030; Q9967

== ENCOUNTER 2020-06-17 10:01 | Outpatient (CLI) | payer MEDICARE, SELFPAY | END 2020-06-17 10:02 | disposition home or self-care (01) | PROVIDERS: PCP Internal Medicine; Visit Provider Physician Assistant | DX: K52.9 Noninfective gastroenteritis and colitis, unspecified (principal) | CPT/HCPCS: 87045; 87046; 87427 ==

== ENCOUNTER 2020-06-18 10:13 | Outpatient (CLI) | payer MEDICARE, SELFPAY ==
[2020-06-18 10:51] LABS: Basophils Percent Auto 0.6 % (0.2-1.2); Eosinophils Absolute Auto 0.1 K/mm3 (0-0.3); Eosinophils Percent Auto 1.7 % (0-4.4); Hematocrit 34.9 % (37.0-47.0); Hemoglobin 11.5 g/dL (12.0-15.0); Immature Granulocyte Absolute 0.03 K/mm3 (0.00-0.031); Immature Granulocyte Percent A 0.4 % (0-0.5); Lymphocytes Absolute Auto 1.87 K/mm3 (0.9-3.2); Lymphocytes Percent Auto 25.9 % (18.3-44.2); Mean Corpuscular Hemoglobin 32.1 pg (26-34); Mean Corpuscular Volume 97.5 fl (80-100); Mean Platelet Volume 9.9 fl (7.4-10.4); Monocytes Absolute Auto 0.6 K/mm3 (0.1-0.6); Monocytes Percent Auto 8.6 % (2.6-8.5); Neutrophils Absolute Auto 4.5 K/mm3 (1.3-6.7); Neutrophils Percent Auto 62.8 % (45.5-73.1); Platelet Count Result 300 k/mm3 (150-375); Red Blood Count 3.58 M/mm3 (4.2-5.4); Red Cell Distribution Width 13.1 % (11.5-14.5); White Blood Count 7.2 K/mm3 (4.5-10.0)
[2020-06-18 11:12] LABS: Alanine Aminotransferase 25 U/L (4-35); Albumin Level 4.1 g/dL (3.5-5.1); Alkaline Phosphatase 68 U/L (38-126); Amylase 69 U/L (30-110); Anion Gap 5 mmol/L (8-16); Aspartate Amino Transferase 45 U/L (14-36); Bilirubin,Total 0.5 mg/dL (0.2-1.3); Blood Urea Nitrogen 24 mg/dL (7-17); Calcium 9.4 mg/dL (8.4-10.2); Carbon Dioxide 28 mmol/L (22-30); Chloride 105 mmol/L (98-107); Cholesterol 157 mg/dL (0-200); Estimated Glomerular Filt Rate 47; Glucose 105 mg/dL (65-105); HDL Direct 59 mg/dL; Lipase 384 U/L (23-300); Potassium 4.6 mmol/L (3.4-5.0); Sodium 138 mmol/L (137-145); Triglycerides 203 mg/dL (<150)
[2020-06-18 11:23] LABS: LDL Cholesterol Direct 42 mg/dL
== END 2020-06-18 10:14 | disposition home or self-care (01) ==
LOC: ANHLAB 10:15
PROVIDERS: PCP Internal Medicine; Visit Provider Internal Medicine
DX: K86.1 Other chronic pancreatitis (principal); Z79.899 Other long term (current) drug therapy; E78.5 Hyperlipidemia, unspecified
CPT/HCPCS: 36415; 80053; 80061; 82150; 83690; 85025

== ENCOUNTER 2020-06-25 10:59 | Outpatient (CLI) | payer MEDICARE, SELFPAY ==
--- NOTE | ~2020-06-25 | MR_ITS ---
EXAMINATION: MR MRCP wo/w con/w 3D wo ind DATE: 06/25/2020 12:57 INDICATION: Chronic pancreatitis, episodes of diarrhea/vomiting, cholecystectomy TECHNIQUE: Magnetic resonance imaging (MRI) of the abdomen was performed without and with intravenous contrast. Sequences included coronal T2-weighted SS-FSE ARC, coronal T2-weighted FS SS-FSE, coronal T2-weighted 2D FS FIESTA, Water:Coronal LAVA-Flex, sagittal T2-weighted SS-FSE ARC, axial SSFSE ARC, axial 3D DualEcho, axial DWI B=600, axial T1-weighted LAVA, FAT:Coronal LAVA-Flex, and coronal in and opposed phase LAVA-Flex. Thick-slab T2-weighted FRFSE-XL images were obtained for magnetic resonance cholangiopancreatography (MRCP). Maximum intensity projection 3-D reconstructions of the volumetric data were created by the technologist. Postcontrast sequences included a time course of axial T1-weig hted LAVA, FAT:Coronal LAVA-Flex, coronal in and opposed phase LAVA-Flex, and Water:Coronal LAVA-Flex . COMPARISON: CT, 06/09/2020 CONTRAST: Multihance, 12 cc FINDINGS: ABDOMEN MRI: The gallbladder is surgically absent. The liver, spleen, pancreas, and adrenal glands, a nd kidneys are normal. No pancreatic mass is identified. There are no pathologically enlarged abdomin al lymph nodes. A moderate volume of colonic stool is present. No dilated loops of bowel are evident. There is severe thoracic and lumbar spondylosis. ABDOMEN MRCP: The common bile duct measures up to 10 mm, likely due to post cholecystectomy state. No stones or stricture are identified. The pancreatic duct is dilated up to 8 mm in the head of the sharma creas. The duct in the body and tail of the pancreas is normal in size. IMPRESSION: 1. Pancreatic ductal enlargement of the pancreas, most likely due to prior pancreatitis. No pancreati c mass identified. 2. Enlargement of the common bile duct, consistent with post cholecystectomy state. Reviewed, dictated and finalized at location B. IMPRESSION: 1. Pancreatic ductal enlargement of the pancreas, most likely due to prior panc reatitis. No pancreatic mass identified. 2. Enlargement of the common bile duct, consistent with post cholecystectomy st ate.
[2020-06-25 11:52] LABS: Estimated Glomerular Filt Rate 53
== END 2020-06-25 11:00 | disposition home or self-care (01) ==
LOC: ANHIMG 11:05
PROVIDERS: PCP Internal Medicine; Visit Provider Internal Medicine
DX: K86.1 Other chronic pancreatitis (principal)
CPT/HCPCS: 74183; 76376; A9577

== ENCOUNTER 2020-08-09 10:10 | Emergency (ER) | payer MEDICARE, SELFPAY ==
[2020-08-09 10:15] VITALS: BP 144/118; PULSE 57; RESP 18; TEMP 36.5; O2SAT 97
[2020-08-09 10:31] LABS: Basophils Percent Auto 0.6 % (0.2-1.2); Eosinophils Absolute Auto 0.1 K/mm3 (0-0.3); Hematocrit 35.8 % (37.0-47.0); Hemoglobin 12.1 g/dL (12.0-15.0); Immature Granulocyte Absolute 0.01 K/mm3 (0.00-0.031); Immature Granulocyte Percent A 0.1 % (0-0.5); Lymphocytes Absolute Auto 2.58 K/mm3 (0.9-3.2); Lymphocytes Percent Auto 37.8 % (18.3-44.2); Mean Corpuscular HGB Conc 33.8 g/dl (32-36); Mean Corpuscular Hemoglobin 32.4 pg (26-34); Mean Platelet Volume 9.9 fl (7.4-10.4); Monocytes Absolute Auto 0.5 K/mm3 (0.1-0.6); Monocytes Percent Auto 7.6 % (2.6-8.5); Neutrophils Absolute Auto 3.6 K/mm3 (1.3-6.7); Neutrophils Percent Auto 52.9 % (45.5-73.1); Platelet Count Result 276 k/mm3 (150-375); Red Blood Count 3.73 M/mm3 (4.2-5.4); Red Cell Distribution Width 13.1 % (11.5-14.5); White Blood Count 6.8 K/mm3 (4.5-10.0)
[2020-08-09 10:44] LABS: Alanine Aminotransferase 12 U/L (4-35); Albumin Level 4.3 g/dL (3.5-5.1); Alkaline Phosphatase 78 U/L (38-126); Anion Gap 11 mmol/L (8-16); Aspartate Amino Transferase 29 U/L (14-36); Bilirubin,Total 0.7 mg/dL (0.2-1.3); Blood Urea Nitrogen 24 mg/dL (7-17); Calcium 9.9 mg/dL (8.4-10.2); Carbon Dioxide 24 mmol/L (22-30); Chloride 105 mmol/L (98-107); Estimated CRCL calculation 31 ml/min; Estimated Glomerular Filt Rate 53; Glucose 109 mg/dL (65-105); Sodium 140 mmol/L (137-145)
[2020-08-09 10:45] LABS: Prothrombin Time 13.2 Seconds (11.1-14.7)
[2020-08-09 10:46] LABS: Partial Thromboplastin Time 26.2 SECONDS (22.3-36.8)
[2020-08-09 11:24] VITALS: BP 170/110; PULSE 90; RESP 16; O2SAT 97
--- NOTE | 2020-08-09 12:21 | ED.GIBLEED ---
HPI - GI Bleed General Chief complaint: GI Bleed Stated complaint: rectal bleeding Time Seen by Provider: 08/09/20 11:31 History of Present Illness HPI Narrative: Patient is an 84-year-old female who presents the ER with rectal bleeding. Symptoms began yesterday. Had approximately 5 episodes of loose stools with diarrhea. She when she wipes she has flakes of blood. She reports that there is bright red blood in the toilet as well. No diaphoresis/dizziness/syncope. She is not on a blood thinner. She has no constipation she is not straining. She will get some discomfort in her lower abdomen right before she passes the bloody stool. Denies acid reflux. Had similar symptoms a couple months ago which required hospitalization. Related Data Home Medications Medication Instructions Recorded Confirmed aspirin 81 mg tablet,delayed 81 mg PO DAILY 01/27/20 08/03/20 release acetaminophen [Tylenol Extra 1,000 mg PO TID 06/09/20 08/03/20 Strength] lidocaine 1 patch TOPICAL DAILY PRN 06/09/20 08/03/20 Allergies Allergy/AdvReac Type Severity Reaction Status Date / Time pregabalin [From Lyrica] Allergy Mild edema Verified 08/09/20 11:25 amoxicillin Allergy Unknown ITCHING Verified 08/09/20 11:25 nifedipine Allergy Unknown VOMITING Verified 08/09/20 11:25 gabapentin AdvReac Mild edema Verified 08/09/20 11:25 Review of Systems Review of Systems: All systems reviewed & are unremarkable except as noted in HPI and below Constitutional: Constitutional: Denies chills, Denies fever(s) and Denies weakness Cardiovascular: Cardiovascular: Denies chest pain and Denies radiating jaw, neck or arm pain Gastrointestinal: Gastrointestinal: Reports abdominal pain, Reports diarrhea, Denies nausea and Denies vomiting Comments: Blood in stool PMFSH Past Medical History Medical History (Updated 08/09/20 @ 13:22 by Kavin Parkinson MD) Anemia BMI 26.0-26.9,adult Colitis Gastroesophageal reflux disease Generalized weakness Grade II diastolic dysfunction Echocardiogram in January 2020 showed normal left ventricular chamber size and dimension with normal systolic function and an estimated ejection fraction of 60 to 65%. Grade 2 diastolic dysfunction also noted. History of pancreatitis Hospital discharge follow-up Hyperlipidemia Hypertension Hypothyroidism On prison drug therapy Pancreatic duct dilated Pedal edema Pulmonary hypertension Echocardiogram in January 2020 showed mild pulmonary hypertension with an estimated pulmonary arterial systolic pressure of 44 mmHg. Resting tremor Routine eye exam Spinal stenosis With chronic low back pain for which she receives epidural injections on occasion. 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 Carrizales in February 2017. History of tonsillectomy and adenoidectomy Hx laparoscopic cholecystectomy Family History Family History Sibling Heart disease ASHD/ HTN Mother Heart disease CHF- @ 94. Father Heart disease - [place] @ 79. Social History Social History Social History: The patient lives in her own home in [place]. She has canes and walkers at home that she will use to assist with ambulation. She has 2 children, and her 1st when they were in grade school of a brain tumor. She remarried 8 years later and her 2nd in March 2019. She is a lifelong nonsmoker and denies alcohol and illicit substance abuse. Her 2 children are her surrogate decision makers and she wishes to be a full code. Smoking status: Never smoker Gender identity (if verbalized by the patient): Female Spiritual car
[2020-08-09 12:29] VITALS: BP 143/64; PULSE 51
[2020-08-09 12:30] VITALS: BP 146/64; PULSE 88
[2020-08-09 12:32] VITALS: BP 146/62; PULSE 77
[2020-08-09 13:41] VITALS: BP 152/84; PULSE 74; RESP 14; O2SAT 96
== END 2020-08-09 13:42 | disposition home or self-care (01) ==
PROVIDERS: Emergency Medicine; Emergency Provider Emergency Medicine; PCP Internal Medicine
DX: K62.5 Hemorrhage of anus and rectum (principal); K52.9 Noninfective gastroenteritis and colitis, unspecified; Z79.82 Long term (current) use of aspirin; K21.9 Gastro-esophageal reflux disease without esophagitis; E78.5 Hyperlipidemia, unspecified; I10 Essential (primary) hypertension; I27.20 Pulmonary hypertension, unspecified
CPT/HCPCS: 36415; 80053; 85025; 85610; 85730; 86850; 86900; 86901; 99283

== ENCOUNTER 2020-08-13 10:51 | Outpatient (CLI) | payer MEDICARE, SELFPAY ==
[2020-08-13 11:24] LABS: Anion Gap 9 mmol/L (8-16); Blood Urea Nitrogen 20 mg/dL (7-17); Calcium 9.3 mg/dL (8.4-10.2); Carbon Dioxide 23 mmol/L (22-30); Chloride 109 mmol/L (98-107); Estimated Glomerular Filt Rate 53; Glucose 99 mg/dL (65-105); Sodium 141 mmol/L (137-145)
== END 2020-08-13 10:52 | disposition home or self-care (01) ==
PROVIDERS: PCP Internal Medicine; Visit Provider Internal Medicine
DX: I10 Essential (primary) hypertension (principal); Z79.899 Other long term (current) drug therapy
CPT/HCPCS: 36415; 80048

== ENCOUNTER 2020-09-04 01:07 | Outpatient (CLI) | payer MEDICARE, SELFPAY ==
[2020-09-05 14:16] LABS: SARS-CoV-2 RNA PCR Negative
== END 2020-09-04 01:08 | disposition home or self-care (01) ==
LOC: ANHCOVIDDT 01:07
PROVIDERS: PCP Internal Medicine; Visit Provider Internal Medicine Gastroenterology
DX: Z01.818 Encounter for other preprocedural examination (principal); Z20.828 Contact with and (suspected) exposure to other viral communicable diseases
CPT/HCPCS: 87635; C9803; U0003

== ENCOUNTER 2020-09-07 00:51 | Day surgery (SDC) | payer MEDICARE, SELFPAY ==
[2020-09-01 08:46] VITALS: BMI 25.8
[2020-09-07 06:23] VITALS: BP 150/81; PULSE 88; RESP 16; TEMP 37; O2SAT 100; BMI 25.2
[2020-09-07] MEDS: LACTATED RINGERS 1,000 ML 150 ML IV CONT (06:48)
--- NOTE | 2020-09-07 07:15 | WPDANESEPPF ---
Anes - Initial Pre Proc Eval Procedure: Operation Date: 09/07/20 07:30 Proposed Procedures p Colonoscopy - Meliton Rodrigez MD Date/Time: 09/07/20 07:15 Surgeon: Meliton Rodrigez MD Pre Op Diagnosis: Rectal Bleeding Patient Data Age: 84 Gender: F Height: 5 ft 1 in Weight: 60.6 kg Last Vital Signs Temp 98.6 F 09/07/20 06:23 Pulse 88 09/07/20 06:23 Resp 16 09/07/20 06:23 BP 150/81 H 09/07/20 06:23 Pulse Ox 100 09/07/20 06:23 Allergies Allergy/AdvReac Type Severity Reaction Status Date / Time pregabalin [From Lyrica] Allergy Mild edema Verified 08/20/20 10:49 amoxicillin Allergy Unknown ITCHING Verified 08/20/20 10:49 nifedipine Allergy Unknown VOMITING Verified 08/20/20 10:49 tramadol Allergy Swelling Verified 09/07/20 06:37 gabapentin AdvReac Mild edema Verified 08/20/20 10:49 Home Medications Medication Instructions Recorded Confirmed Type cholecalciferol (vitamin D3) 25 25 mcg PO DAILY #90 cap 01/20/20 09/07/20 Rx mcg (1,000 unit) capsule mecobalamin (vitamin B12) 1,000 1,000 mcg SUBLINGUAL DAILY #90 01/20/20 09/07/20 Rx mcg disintegrating tablet tablet,sublingual nitroglycerin 0.4 mg sublingual 0.4 mg SUBLINGUAL Q5M PRN #20 01/20/20 09/07/20 Rx tablet tablet aspirin 81 mg tablet,delayed 81 mg PO DAILY 01/27/20 09/07/20 History release levothyroxine 50 mcg tablet 50 mcg PO DAILY #90 tablet 02/10/20 09/07/20 Rx omeprazole 40 mg capsule,delayed 40 mg PO DAILY #90 cap 02/10/20 09/07/20 Rx release atorvastatin 20 mg tablet 20 mg PO DAILY #90 tablet 02/19/20 09/07/20 Rx lisinopril 10 mg tablet 10 mg PO DAILY #90 tablet 05/04/20 09/07/20 Rx acetaminophen [Tylenol Extra 1,000 mg PO TID 06/09/20 09/07/20 History Strength] lidocaine 1 patch TOPICAL DAILY PRN 06/09/20 09/07/20 History spironolactone 50 mg tablet 50 mg PO DAILY #90 tablet 07/26/20 09/07/20 Rx peg 3350 240 gram-electrolytes 240 ml PO Q10M #4000 ml 08/23/20 Rx 22.72 gram-6.72 g-5.84 g powdr for soln furosemide 20 mg tablet 20 mg PO QAM #90 tablet 08/30/20 09/07/20 Rx ascorbic acid (vitamin C) 500 mg PO DAILY 09/07/20 09/07/20 History carvedilol 3.125 mg PO Q12H 09/07/20 09/07/20 History Patient hx anesthesia problems: none Family hx anesthesia problems: none PMFSH Past Medical History Medical History (Updated 08/20/20 @ 11:01 by Jill Tracy) Anemia BMI 26.0-26.9,adult Colitis Gastroesophageal reflux disease Generalized weakness Grade II diastolic dysfunction Echocardiogram in January 2020 showed normal left ventricular chamber size and dimension with normal systolic function and an estimated ejection fraction of 60 to 65%. Grade 2 diastolic dysfunction also noted. History of pancreatitis Hospital discharge follow-up Hyperlipidemia Hypertension Hypothyroidism On extermination inspector drug therapy Pancreatic duct dilated Pedal edema Pulmonary hypertension Echocardiogram in January 2020 showed mild pulmonary hypertension with an estimated pulmonary arterial systolic pressure of 44 mmHg. Rectal bleeding Resting tremor Routine eye exam Spinal stenosis With chronic low back pain for which she receives epidural injections on occasion. 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 Carrizales in February 2017. History of tonsillectomy and adenoidectomy Hx laparoscopic cholecystectomy Family History Family History Sibling Heart disease ASHD/ HTN Mother Heart disease CHF- @ 94. Father Heart disease - [place] @ 79. Social History Social History Social History: The patient lives in her
--- NOTE | 2020-09-07 07:35 | WPDHPUPDATE1 ---
History and Physical Update Update Date/Time: 09/07/20 07:35 History and Physical has been reviewed, including an updated exam of the patient. There are NO changes in the patient's condition. Risks, benefits, and alternatives have been discussed and questions answered. Patient agrees to proceed with procedure.
[2020-09-07 08:05] VITALS: BP 124/58; PULSE 81; RESP 18; O2SAT 99
[2020-09-07 08:15] VITALS: BP 123/66; PULSE 75; RESP 19; O2SAT 99
[2020-09-07 08:25] VITALS: BP 142/73; PULSE 73; RESP 18; O2SAT 97
== END 2020-09-07 08:30 | disposition home or self-care (01) ==
PROVIDERS: PCP Internal Medicine; Visit Provider Internal Medicine Gastroenterology
PROC: 0DJD8ZZ Inspection of Lower Intestinal Tract, Via Natural or Artificial Opening Endoscopic (ICD-10-PCS; CPT 45378; principal; 2020-09-07 07:30)
DX: K62.5 Hemorrhage of anus and rectum (principal); K52.9 Noninfective gastroenteritis and colitis, unspecified; K21.9 Gastro-esophageal reflux disease without esophagitis; K64.8 Other hemorrhoids; I10 Essential (primary) hypertension; I27.20 Pulmonary hypertension, unspecified; E03.9 Hypothyroidism, unspecified; E78.5 Hyperlipidemia, unspecified; M48.00 Spinal stenosis, site unspecified; G25.2 Other specified forms of tremor; Z79.899 Other long term (current) drug therapy
CPT/HCPCS: 45378; J2704; J7120

== ENCOUNTER 2020-12-28 14:25 | Outpatient (CLI) | payer MEDICARE, SELFPAY ==
[2020-12-28 15:03] LABS: Anion Gap 5 mmol/L (8-16); Blood Urea Nitrogen 21 mg/dL (7-17); Calcium 9.5 mg/dL (8.4-10.2); Carbon Dioxide 27 mmol/L (22-30); Chloride 110 mmol/L (98-107); Cholesterol 143 mg/dL (0-200); Estimated Glomerular Filt Rate 47; Glucose 104 mg/dL (65-105); HDL Direct 62 mg/dL; Potassium 4.2 mmol/L (3.4-5.0); Sodium 142 mmol/L (137-145); Triglycerides 228 mg/dL (<150)
[2020-12-28 15:14] LABS: LDL Cholesterol Direct 48 mg/dL
[2020-12-28 16:03] LABS: Free T4 Free Thyroxine 0.93 ng/mL (0.78-2.19); Vitamin D 25 Hydroxy 45.5 ng/mL
== END 2020-12-28 14:26 | disposition home or self-care (01) ==
PROVIDERS: PCP Internal Medicine; Visit Provider Internal Medicine
DX: E55.9 Vitamin D deficiency, unspecified (principal); I10 Essential (primary) hypertension; E03.9 Hypothyroidism, unspecified; E78.5 Hyperlipidemia, unspecified; R60.9 Edema, unspecified
CPT/HCPCS: 36415; 80048; 80061; 82306; 84439; 84443

== ENCOUNTER 2021-01-03 16:44 | Outpatient (CLI) | payer MEDICARE, SELFPAY ==
--- NOTE | ~2021-01-03 | XR_ITS ---
XR lumbar spine 6V w bending 01/03/2021 17:48 Indication: Low back pain. Procedure: 7 views of the cervical spine including oblique and flexion and extension views. Comparison: CT dated 06/09/2020 Findings: There is advanced multilevel facet hypertrophy. There is disc narrowing at all lumbar level s. There is grade 1-2 spondylolisthesis at L3-4 and grade 2 spondylolisthesis at L4-5. No acute fract ures identified. No significant alteration of alignment with flexion and extension. There is levoscol iosis centered at the thoracolumbar junction. There is atherosclerosis of the aorta. Impression: 1: Severe lumbar spondylosis. Reviewed, dictated and finalized at location A. Impression: 1: Severe lumbar spondylosis.
== END 2021-01-03 16:45 | disposition home or self-care (01) ==
LOC: ANHIMG 16:47
PROVIDERS: PCP Internal Medicine; Visit Provider Internal Medicine
DX: M47.896 Other spondylosis, lumbar region (principal)
CPT/HCPCS: 72114

== ENCOUNTER 2021-01-04 13:01 | Outpatient (CLI) | payer MEDICARE, SELFPAY | END 2021-01-04 13:02 | disposition home or self-care (01) | PROVIDERS: PCP Internal Medicine; Visit Provider Internal Medicine | DX: R19.7 Diarrhea, unspecified (principal); Z78.9 Other specified health status | CPT/HCPCS: 87045; 87046; 87177; 87209; 87427; 89055 ==

== ENCOUNTER 2021-01-28 10:00 | Outpatient (CLI) | payer MEDICARE, SELFPAY ==
--- NOTE | ~2021-01-28 | CT_ITS ---
EXAMINATION: CTA abdomen pelvis DATE: 01/28/2021 10:31 INDICATION: Unspecified abdominal pain TECHNIQUE: Computed tomographic angiography (CTA) of the abdomen and pelvis was performed with 100 mL Omnipaque-350 intravenous contrast. Maximum intensity projection 3D-reconstructions of the aorta and other arteries were constructed by the technologist on a separate workstation. The dose-length produ ct (DLP) was 390.41 mGy-cm. Automated exposure control and iterative reconstruction technique were em ployed. COMPARISON: MRCP, 06/25/2020; CT, 06/09/2020 FINDINGS: Minimal dependent atelectasis is present in the lung bases. The heart size is normal. The g allbladder is surgically absent. Mild pneumobilia is noted, likely related to sphincterotomy. The patrice er, spleen, and adrenal glands are normal. There is low attenuation in the head of the pancreas corre sponding to a cystic area seen on recent MRCP and consistent with sequela of prior pancreatitis. The kidneys are unremarkable. No pathologically enlarged abdominal or pelvic lymph nodes are identified. There is no free intraperitoneal gas or evidence of bowel obstruction. There are changes of mesh vent ral hernia repair. Severe thoracolumbar spondylosis is noted. The celiac axis and superior mesenteric artery are normal. Single renal arteries are present bilatera lly. There is calcified atherosclerosis of the infrarenal abdominal aorta without aneurysm or dissect ion. The inferior mesenteric artery is unremarkable. There is calcified atherosclerosis of the multicultural internship al iliac arteries without hemodynamically significant stenosis. IMPRESSION: 1. Unremarkable abdominal CTA. Areas of mild atherosclerosis without hemodynamically significant sten osis. No aneurysm or dissection. Reviewed, dictated and finalized at location B. IMPRESSION: 1. Unremarkable abdominal CTA. Areas of mild atherosclerosis without hemodynami charleen significant stenosis. No aneurysm or dissection.
== END 2021-01-28 10:01 | disposition home or self-care (01) ==
LOC: ANHIMG 10:02
PROVIDERS: PCP Internal Medicine; Visit Provider Internal Medicine
DX: K62.5 Hemorrhage of anus and rectum (principal); R10.2 Pelvic and perineal pain; R19.7 Diarrhea, unspecified; Z87.19 Personal history of other diseases of the digestive system
CPT/HCPCS: 74174; Q9967

== ENCOUNTER 2021-06-09 10:22 | Outpatient (CLI) | payer MEDICARE, SELFPAY ==
[2021-06-09 11:22] LABS: Anion Gap 8 mmol/L (8-16); Blood Urea Nitrogen 23 mg/dL (7-17); Calcium 9.4 mg/dL (8.4-10.2); Carbon Dioxide 19 mmol/L (22-30); Chloride 106 mmol/L (98-107); Cholesterol 145 mg/dL (0-200); Estimated Glomerular Filt Rate 47; Glucose 100 mg/dL (65-110); HDL Direct 62 mg/dL; Potassium 6.1 mmol/L (3.4-5.0); Sodium 133 mmol/L (137-145); Triglycerides 167 mg/dL (<150)
[2021-06-09 11:25] LABS: LDL Cholesterol Direct 44 mg/dL
[2021-06-09 11:42] LABS: Hemoglobin A1C 6.1 % (<5.7)
[2021-06-16 01:34] LABS: Vitamin D 1,25 (OH)2 Total 27 pg/mL (18-72); Vitamin D2 1,25 (OH)2 <8 pg/mL; Vitamin D3 1,25 (OH)2 27 pg/mL
== END 2021-06-09 10:23 | disposition home or self-care (01) ==
PROVIDERS: PCP Internal Medicine; Visit Provider Internal Medicine
DX: E78.2 Mixed hyperlipidemia (principal); Z79.899 Other long term (current) drug therapy; I10 Essential (primary) hypertension; E55.9 Vitamin D deficiency, unspecified
CPT/HCPCS: 36415; 80048; 80061; 82652; 83036; 84132

== ENCOUNTER 2021-06-09 14:25 | Outpatient (CLI) | payer MEDICARE, SELFPAY ==
[2021-06-09 15:21] LABS: Potassium 5.8 mmol/L (3.4-5.0)
== END 2021-06-09 14:26 | disposition home or self-care (01) ==
PROVIDERS: PCP Internal Medicine; Visit Provider Internal Medicine
DX: E87.5 Hyperkalemia (principal)
CPT/HCPCS: 36415; 84132

== ENCOUNTER 2021-06-14 14:11 | Outpatient (CLI) | payer MEDICARE, SELFPAY ==
[2021-06-14 14:48] LABS: Potassium 5.4 mmol/L (3.4-5.0)
== END 2021-06-14 14:12 | disposition home or self-care (01) ==
PROVIDERS: PCP Internal Medicine; Visit Provider Internal Medicine
DX: E87.5 Hyperkalemia (principal)
CPT/HCPCS: 36415; 84132

== ENCOUNTER 2021-06-21 13:37 | Outpatient (CLI) | payer MEDICARE, SELFPAY ==
[2021-06-21 16:31] LABS: Anion Gap 10 mmol/L (8-16); Blood Urea Nitrogen 37 mg/dL (7-17); Calcium 9.3 mg/dL (8.4-10.2); Carbon Dioxide 20 mmol/L (22-30); Chloride 108 mmol/L (98-107); Estimated Glomerular Filt Rate 36; Glucose 107 mg/dL (65-110); Potassium 4.5 mmol/L (3.4-5.0); Sodium 138 mmol/L (137-145)
== END 2021-06-21 13:38 | disposition home or self-care (01) ==
PROVIDERS: PCP Internal Medicine; Visit Provider Internal Medicine
DX: E87.5 Hyperkalemia (principal)
CPT/HCPCS: 36415; 80048

== ENCOUNTER 2021-10-05 12:46 | Outpatient (CLI) | payer MEDICARE, SELFPAY ==
[2021-10-05 13:09] LABS: Basophils Percent Auto 0.7 % (0.2-1.2); Eosinophils Absolute Auto 0.1 K/mm3 (0-0.3); Hematocrit 35.8 % (37.0-47.0); Hemoglobin 11.9 g/dL (12.0-15.0); Immature Granulocyte Absolute 0.01 K/mm3 (0.00-0.031); Immature Granulocyte Percent A 0.2 % (0-0.5); Lymphocytes Absolute Auto 2.15 K/mm3 (0.9-3.2); Lymphocytes Percent Auto 36.4 % (18.3-44.2); Mean Corpuscular HGB Conc 33.2 g/dl (32-36); Mean Corpuscular Hemoglobin 33.3 pg (26-34); Mean Corpuscular Volume 100.3 fl (80-100); Mean Platelet Volume 9.6 fl (7.4-10.4); Monocytes Absolute Auto 0.6 K/mm3 (0.1-0.6); Monocytes Percent Auto 9.8 % (2.6-8.5); Neutrophils Percent Auto 50.9 % (45.5-73.1); Platelet Count Result 263 k/mm3 (150-375); Red Blood Count 3.57 M/mm3 (4.2-5.4); Red Cell Distribution Width 12.6 % (11.5-14.5); White Blood Count 5.9 K/mm3 (4.5-10.0)
[2021-10-05 13:22] LABS: Alanine Aminotransferase 11 U/L (4-35); Albumin Level 4.3 g/dL (3.5-5.1); Alkaline Phosphatase 67 U/L (38-126); Anion Gap 5 mmol/L (8-16); Aspartate Amino Transferase 25 U/L (14-36); Bilirubin,Total 0.3 mg/dL (0.2-1.3); Blood Urea Nitrogen 26 mg/dL (7-17); Calcium 9.5 mg/dL (8.4-10.2); Carbon Dioxide 27 mmol/L (22-30); Chloride 103 mmol/L (98-107); Cholesterol 158 mg/dL (0-200); Estimated Glomerular Filt Rate 43; Glucose 105 mg/dL (65-110); HDL Direct 61 mg/dL; Potassium 4.2 mmol/L (3.4-5.0); Sodium 135 mmol/L (137-145); Triglycerides 189 mg/dL (<150)
[2021-10-05 13:33] LABS: LDL Cholesterol Direct 54 mg/dL
[2021-10-05 13:51] LABS: Free T4 Free Thyroxine 0.94 ng/mL (0.78-2.19)
== END 2021-10-05 12:47 | disposition home or self-care (01) ==
LOC: ANHLAB 12:49
PROVIDERS: PCP Internal Medicine; Visit Provider Internal Medicine
DX: R73.03 Prediabetes (principal); E78.2 Mixed hyperlipidemia; E03.9 Hypothyroidism, unspecified; I10 Essential (primary) hypertension
CPT/HCPCS: 36415; 80053; 80061; 83036; 84439; 84443; 85025

== ENCOUNTER 2022-01-25 09:46 | Outpatient (CLI) | payer MEDICARE, SELFPAY ==
--- NOTE | ~2022-01-25 | MR_ITS ---
EXAMINATION: MR lumbar spine wo [facility] EXAM DATE: 01/25/2022 10:34 INDICATION: M48.00 - Spinal stenosis, site unspecified. TECHNIQUE: Multi-sequential, multiplanar MR images of the lumbar spine were obtained without contrast . Sagittal T1, T2, T2 fat saturation images. Axial T2 weighted images. There is no prior study for comparison. FINDINGS: There is severe disc disease L2-S1. There is grade 2 anterolisthesis L4 on L5 and L5 on S1. Grade 1 retrolisthesis L2 on L3 and L3 on L4. Mild upper lumbar levoscoliosis. The conus medullaris terminates at the L2-3 level and has normal signal intensity and morphology. Multilevel endplate marcelina a, degenerative signal change. There is a moderate-sized hemangioma within L2. A few millimeters retr olisthesis of T11 on T12 and T12 on L1. Paraspinal soft tissue is unremarkable. Level by level evaluation: T12-L1: There is a mild to moderate diffuse disc bulge, asymmetric to the right, bulging into the janna ral foramina Facet arthropathy: Mild to moderate right, mild left. Neural foraminal stenosis: Moderate to severe right, mild left. Central canal stenosis: Mild. L1-L2: There is a mild diffuse disc bulge. Facet arthropathy: Moderate . Ligamentum flavum enlargement. Neural foraminal stenosis: Mild to moderate right. Central canal stenosis: Mild. L2-L3: There is a moderate diffuse disc bulge. Facet arthropathy: Moderate to severe . Ligamentum flavum enlargement. Neural foraminal stenosis: Moderate bilateral. Central canal stenosis: Mild to moderate. L3-L4: There is a moderate diffuse disc bulge. Facet arthropathy: Moderate to severe. Ligamentum flavum enlargement. Neural foraminal stenosis: Moderate left, mild to moderate right. Central canal stenosis: Moderate. L4-L5: There is a large diffuse disc bulge. Facet arthropathy: Severe . Ligamentum flavum enlargement . Neural foraminal stenosis: Moderate to severe left, moderate right. Central canal stenosis: Severe. L5-S1: There is a large diffuse disc bulge. Facet arthropathy: Severe, but fused. Neural foraminal stenosis: Moderate right, mild to moderate left. Central canal stenosis: Severe. IMPRESSION: Severe lumbar spondylosis. Reviewed, dictated and finalized at location B. IMPRESSION: Severe lumbar spondylosis.
== END 2022-01-25 09:47 | disposition home or self-care (01) ==
PROVIDERS: PCP Internal Medicine; Visit Provider Internal Medicine
DX: M47.815 Spondylosis without myelopathy or radiculopathy, thoracolumbar region (principal); M54.50 Low back pain, unspecified; G89.29 Other chronic pain; M48.05 Spinal stenosis, thoracolumbar region; M47.817 Spondylosis without myelopathy or radiculopathy, lumbosacral region; M48.07 Spinal stenosis, lumbosacral region
CPT/HCPCS: 72148

== ENCOUNTER 2022-02-09 12:41 | Outpatient (CLI) | payer MEDICARE, SELFPAY ==
[2022-02-09 13:47] LABS: Hemoglobin A1C 5.8 % (<5.7)
[2022-02-09 13:59] LABS: LDL Cholesterol Direct 43 mg/dL
[2022-02-09 14:18] LABS: Thyroid Stimulating Hormone 0.892 uIU/mL (0.465-4.680)
[2022-02-09 14:39] LABS: Alanine Aminotransferase 11 U/L (4-35); Albumin Level 4.1 g/dL (3.5-5.1); Alkaline Phosphatase 67 U/L (38-126); Anion Gap 6 mmol/L (8-16); Aspartate Amino Transferase 25 U/L (14-36); Bilirubin,Total 0.3 mg/dL (0.2-1.3); Blood Urea Nitrogen 17 mg/dL (7-17); Calcium 9.1 mg/dL (8.4-10.2); Carbon Dioxide 26 mmol/L (22-30); Chloride 106 mmol/L (98-107); Cholesterol 153 mg/dL (0-200); Estimated Glomerular Filt Rate 52; Glucose 94 mg/dL (65-110); HDL Direct 59 mg/dL; Potassium 3.9 mmol/L (3.4-5.0); Sodium 138 mmol/L (137-145); Triglycerides 289 mg/dL (<150)
[2022-02-09 18:56] LABS: Free T4 Free Thyroxine 1.19 ng/mL (0.78-2.19); Vitamin D 25 Hydroxy 31.1 ng/mL
== END 2022-02-09 12:42 | disposition home or self-care (01) ==
LOC: ANHLAB 12:46
PROVIDERS: PCP Internal Medicine; Visit Provider Internal Medicine
DX: E03.9 Hypothyroidism, unspecified (principal); I10 Essential (primary) hypertension; R73.03 Prediabetes; E78.2 Mixed hyperlipidemia; E55.9 Vitamin D deficiency, unspecified
CPT/HCPCS: 36415; 80053; 80061; 82306; 83036; 84439; 84443

== ENCOUNTER 2022-08-09 12:16 | Outpatient (CLI) | payer MEDICARE, SELFPAY ==
[2022-08-09 13:02] LABS: Anion Gap 13 mmol/L (8-16); Blood Urea Nitrogen 17 mg/dL (7-17); Calcium 9.2 mg/dL (8.4-10.2); Carbon Dioxide 26 mmol/L (22-30); Chloride 104 mmol/L (98-107); Cholesterol 141 mg/dL (0-200); Estimated Glomerular Filt Rate 59; Glucose 98 mg/dL (65-110); HDL Direct 63 mg/dL; Potassium 4.1 mmol/L (3.4-5.0); Sodium 143 mmol/L (137-145); Triglycerides 115 mg/dL (<150)
[2022-08-09 13:12] LABS: LDL Cholesterol Direct 44 mg/dL
== END 2022-08-09 12:17 | disposition home or self-care (01) ==
PROVIDERS: PCP Internal Medicine; Visit Provider Internal Medicine
DX: E78.2 Mixed hyperlipidemia (principal); R73.03 Prediabetes; I10 Essential (primary) hypertension
CPT/HCPCS: 36415; 80048; 80061; 83036

== ENCOUNTER 2023-01-17 12:43 | Outpatient (CLI) | payer MEDICARE, SELFPAY ==
[2023-01-17 14:05] LABS: Basophils Absolute Auto 0.1 K/mm3 (0.0-0.1); Basophils Percent Auto 0.8 % (0.2-1.2); Eosinophils Absolute Auto 0.1 K/mm3 (0-0.3); Eosinophils Percent Auto 1.4 % (0-4.4); Hematocrit 35.4 % (37.0-47.0); Hemoglobin 11.4 g/dL (12.0-15.0); Immature Granulocyte Absolute 0.02 K/mm3 (0.00-0.031); Immature Granulocyte Percent A 0.3 % (0-0.5); Lymphocytes Absolute Auto 2.35 K/mm3 (0.9-3.2); Lymphocytes Percent Auto 36.8 % (18.3-44.2); Mean Corpuscular HGB Conc 32.2 g/dl (32-36); Mean Corpuscular Hemoglobin 32.2 pg (26-34); Mean Platelet Volume 10.5 fl (7.4-10.4); Monocytes Absolute Auto 0.6 K/mm3 (0.1-0.6); Monocytes Percent Auto 9.2 % (2.6-8.5); Neutrophils Absolute Auto 3.3 K/mm3 (1.3-6.7); Neutrophils Percent Auto 51.5 % (45.5-73.1); Platelet Count Result 256 k/mm3 (150-375); Red Blood Count 3.54 M/mm3 (4.2-5.4); Red Cell Distribution Width 13.9 % (11.5-14.5); White Blood Count 6.4 K/mm3 (4.5-10.0)
[2023-01-17 14:07] LABS: Appearance Urine Clear (Clear); Bilirubin Urine Negative (Negative); Blood Urine Negative (Negative); Color Urine Yellow (Yellow); Glucose Urine UA Negative (Negative); Ketones Urine Negative (Negative); Leukocyte Esterase Ur Negative LEU/UL (Negative); Nitrate Urine Negative (Negative); Protein Urine Negative (Negative); Specific Grav Ur 1.007 (1.001-1.035); Urobilinogen Urine 0.2 mg/dL (<2.0); pH Urine 5.5 (5.0-9.0)
[2023-01-17 14:14] LABS: Alanine Aminotransferase 17 U/L (6-35); Albumin Level 4.2 g/dL (3.5-5.1); Alkaline Phosphatase 67 U/L (38-126); Anion Gap 6 mmol/L (8-16); Aspartate Amino Transferase 24 U/L (14-36); Bilirubin,Total 0.6 mg/dL (0.2-1.3); Blood Urea Nitrogen 19 mg/dL (7-17); Calcium 9.3 mg/dL (8.4-10.2); Carbon Dioxide 26 mmol/L (22-30); Chloride 108 mmol/L (98-107); Cholesterol 158 mg/dL (0-200); Estimated Glomerular Filt Rate > 60; Glucose 89 mg/dL (65-110); HDL Direct 73 mg/dL; Potassium 3.8 mmol/L (3.4-5.0); Sodium 140 mmol/L (137-145); Triglycerides 151 mg/dL (<150)
[2023-01-17 14:16] LABS: Add Urine Microscopic? NO
[2023-01-17 14:24] LABS: LDL Cholesterol Direct 46 mg/dL
[2023-01-17 14:32] LABS: Hemoglobin A1C 5.9 % (<5.7)
[2023-01-17 14:43] LABS: Thyroid Stimulating Hormone 0.965 uIU/mL (0.465-4.680)
[2023-01-17 14:52] LABS: Free T4 Free Thyroxine 0.98 ng/mL (0.78-2.19)
[2023-01-17 16:49] LABS: Prealbumin 26.5 mg/dL (17.6-36.0)
== END 2023-01-17 12:44 | disposition home or self-care (01) ==
LOC: ANHLAB 12:45
PROVIDERS: PCP Internal Medicine; Visit Provider Internal Medicine
DX: I10 Essential (primary) hypertension (principal); E03.9 Hypothyroidism, unspecified; Z79.899 Other long term (current) drug therapy; E78.5 Hyperlipidemia, unspecified; R73.03 Prediabetes; R63.4 Abnormal weight loss
CPT/HCPCS: 36415; 80053; 80061; 81003; 83036; 84134; 84439; 84443; 85025

== ENCOUNTER 2023-02-08 11:23 | Outpatient (CLI) | payer MEDICARE, SELFPAY ==
[2023-02-08 12:07] LABS: Basophils Absolute Auto 0.1 K/mm3 (0.0-0.1); Basophils Percent Auto 0.9 % (0.2-1.2); Eosinophils Absolute Auto 0.1 K/mm3 (0-0.3); Eosinophils Percent Auto 1.9 % (0-4.4); Hematocrit 37.9 % (37.0-47.0); Hemoglobin 12.3 g/dL (12.0-15.0); Immature Granulocyte Absolute 0.01 K/mm3 (0.00-0.031); Immature Granulocyte Percent A 0.2 % (0-0.5); Lymphocytes Absolute Auto 2.48 K/mm3 (0.9-3.2); Lymphocytes Percent Auto 43.7 % (18.3-44.2); Mean Corpuscular HGB Conc 32.5 g/dl (32-36); Mean Corpuscular Hemoglobin 32.3 pg (26-34); Mean Corpuscular Volume 99.5 fl (80-100); Mean Platelet Volume 9.9 fl (7.4-10.4); Monocytes Absolute Auto 0.4 K/mm3 (0.1-0.6); Monocytes Percent Auto 7.4 % (2.6-8.5); Neutrophils Absolute Auto 2.6 K/mm3 (1.3-6.7); Neutrophils Percent Auto 45.9 % (45.5-73.1); Platelet Count Result 349 k/mm3 (150-375); Red Blood Count 3.81 M/mm3 (4.2-5.4); Red Cell Distribution Width 13.4 % (11.5-14.5); White Blood Count 5.7 K/mm3 (4.5-10.0)
[2023-02-08 12:19] LABS: Anion Gap 5 mmol/L (8-16); Blood Urea Nitrogen 25 mg/dL (7-17); Calcium 9.4 mg/dL (8.4-10.2); Carbon Dioxide 30 mmol/L (22-30); Chloride 103 mmol/L (98-107); Estimated Glomerular Filt Rate > 60; Glucose 104 mg/dL (65-110); Potassium 4.7 mmol/L (3.4-5.0); Sodium 138 mmol/L (137-145)
== END 2023-02-08 11:24 | disposition home or self-care (01) ==
LOC: ANHLAB 11:25
PROVIDERS: PCP Internal Medicine; Visit Provider Internal Medicine
DX: I10 Essential (primary) hypertension (principal); K62.5 Hemorrhage of anus and rectum; Z79.899 Other long term (current) drug therapy; E86.0 Dehydration
CPT/HCPCS: 36415; 80048; 85025

== ENCOUNTER 2023-06-29 13:30 | Outpatient (CLI) | payer MEDICARE, SELFPAY ==
[2023-06-29 14:01] LABS: Basophils Absolute Auto 0.1 K/mm3 (0.0-0.1); Basophils Percent Auto 1.1 % (0.2-1.2); Eosinophils Absolute Auto 0.1 K/mm3 (0-0.3); Hemoglobin 10.8 g/dL (12.0-15.0); Immature Granulocyte Absolute 0.01 K/mm3 (0.00-0.031); Immature Granulocyte Percent A 0.2 % (0-0.5); Lymphocytes Absolute Auto 2.32 K/mm3 (0.9-3.2); Mean Corpuscular HGB Conc 32.7 g/dl (32-36); Mean Corpuscular Volume 100.9 fl (80-100); Mean Platelet Volume 10.1 fl (7.4-10.4); Monocytes Absolute Auto 0.5 K/mm3 (0.1-0.6); Monocytes Percent Auto 9.2 % (2.6-8.5); Neutrophils Absolute Auto 2.5 K/mm3 (1.3-6.7); Neutrophils Percent Auto 45.5 % (45.5-73.1); Platelet Count Result 273 k/mm3 (150-375); Red Blood Count 3.27 M/mm3 (4.2-5.4); Red Cell Distribution Width 13.4 % (11.5-14.5); White Blood Count 5.5 K/mm3 (4.5-10.0)
[2023-06-29 14:15] LABS: Alanine Aminotransferase 16 U/L (6-35); Albumin Level 3.9 g/dL (3.5-5.1); Alkaline Phosphatase 74 U/L (38-126); Anion Gap 6 mmol/L (8-16); Aspartate Amino Transferase 25 U/L (14-36); Bilirubin,Total 0.4 mg/dL (0.2-1.3); Blood Urea Nitrogen 25 mg/dL (7-17); Calcium 9.2 mg/dL (8.4-10.2); Carbon Dioxide 27 mmol/L (22-30); Chloride 106 mmol/L (98-107); Cholesterol 151 mg/dL (0-200); Estimated Glomerular Filt Rate 59; Glucose 89 mg/dL (65-110); HDL Direct 60 mg/dL; Potassium 4.5 mmol/L (3.4-5.0); Sodium 139 mmol/L (137-145); Triglycerides 197 mg/dL (<150)
[2023-06-29 14:26] LABS: LDL Cholesterol Direct 59 mg/dL
[2023-06-29 14:46] LABS: Hemoglobin A1C 5.9 % (<5.7)
[2023-06-29 14:58] LABS: Free T4 Free Thyroxine 1.03 ng/mL (0.78-2.19)
[2023-07-02 11:04] LABS: Iron 86 ug/dL (37-170)
[2023-07-02 11:13] LABS: Percent Iron Saturation 30 % (20-50)
[2023-07-02 13:34] LABS: Folic Acid 19.1 ng/mL (2.76->20)
== END 2023-06-29 13:31 | disposition home or self-care (01) ==
PROVIDERS: PCP Internal Medicine; Visit Provider Internal Medicine
DX: E03.9 Hypothyroidism, unspecified (principal); E78.5 Hyperlipidemia, unspecified; R73.03 Prediabetes; I10 Essential (primary) hypertension; D64.9 Anemia, unspecified; I51.9 Heart disease, unspecified; R53.83 Other fatigue
CPT/HCPCS: 36415; 80053; 80061; 82607; 82728; 82746; 83036; 83540; 83550; 84439; 84443; 85025

== ENCOUNTER 2023-08-28 00:31 | Day surgery (SDC) | payer MEDICARE, SELFPAY ==
[2023-08-15 13:59] VITALS: BMI 23.4
--- NOTE | 2023-08-24 09:45 | SUR.PREOP ---
Patient called regarding upcoming procedure. Reviewed preop instructions, appointment times, and procedure prep.
[2023-08-28 09:38] VITALS: BP 173/81; PULSE 92; RESP 18; TEMP 36.4; O2SAT 100
[2023-08-28] MEDS: LACTATED RINGERS 1,000 ML 150 ML IV CONT (09:49)
--- NOTE | 2023-08-28 09:54 | PM.HPGS ---
History of Present Illness History of Present Illness Consent: Risks, benefits, and alternatives have been discussed and questions answered. Patient agrees to proceed with procedure. Chief complaint: occult blood in stool Narrative: Angie Awan is a 87 year old female Referred for colonoscopy because of occult blood in stool. Patient denies abdominal pain. She has intermittent loose stools that is improved greatly on taking fiber supplements. Patient notes hemorrhoidal rectal pain that improves with preparation H. Family history is noncontributory. Patient apparently had mild anemia and for this reason stool Hemoccult was obtained which found to be positive. Patient returns for colonoscopy. Review of Systems Review of Systems: Review of systems noncontributory. [facility] Past Medical History Medical History Abnormal EKG Anemia BMI 23.0-23.9, adult BMI 24.0-24.9, adult BMI 25.0-25.9,adult BMI 26.0-26.9,adult BRBPR (bright red blood per rectum) Chest discomfort Chest discomfort Chronic low back pain CKD (chronic kidney disease) Colitis Combined abdominal and pelvic pain Constipation Diarrhea Encounter for Medicare annual wellness exam Encounter for routine adult health examination with abnormal findings Encounter for routine adult health examination without abnormal findings Gastroesophageal reflux disease Generalized weakness Grade II diastolic dysfunction Echocardiogram in January 2020 showed normal left ventricular chamber size and dimension with normal systolic function and an estimated ejection fraction of 60 to 65%. Grade 2 diastolic dysfunction also noted. Has well water in home History of colitis History of pancreatitis Hospital discharge follow-up Hyperlipidemia Hypothyroidism Left chest pressure Lower abdominal pain Nausea and vomiting in adult On termite exterminator helper drug therapy Pancreatic duct dilated Pedal edema Pre-diabetes Pulmonary hypertension Echocardiogram in January 2020 showed mild pulmonary hypertension with an estimated pulmonary arterial systolic pressure of 44 mmHg. 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 Crarizales in February 2017. History of tonsillectomy and adenoidectomy Hx laparoscopic cholecystectomy Family History Family History Sibling Heart disease ASHD/ HTN Mother Heart disease CHF- @ 94. Father Heart disease - [place] @ 79. Social History Social History Social History: The patient lives in her own home in [place]. She has canes and walkers at home that she will use to assist with ambulation. She has 2 children, and her 1st when they were in grade school of a brain tumor. She remarried 8 years later and her 2nd in March 2019. She is a lifelong nonsmoker and denies alcohol and illicit substance abuse. Her 2 children are her surrogate decision makers and she wishes to be a full code. Smoking status: Never smoker Second hand tobacco smoke exposure: No Alcohol intake: never Substance use: never Substance use type: does not use Lack of Transportation: No Lack of Food: Never True Current Housing: I Have Housing Concerned About Future Housing: No Difficulty Paying Gas/Electric Bills: No Difficulty Paying for Meds: No Currently Unemployed: No Education: High School Diploma/GED Difficulty w/ Childcare or Family Care: No Living arrangements: al
--- NOTE | 2023-08-28 10:05 | WPDANESEPPF ---
Anes - Initial Pre Proc Eval Procedure: Operation Date: 08/28/23 10:45 Proposed Procedures p Colonoscopy - Jerome Barcenas MD Date/Time: 08/28/23 10:05 Surgeon: Jerome Barcenas MD Pre Op Diagnosis: occult blood in stool Patient Data Age: 87 Gender: F Height: 1.55 m Weight: 54.7 kg Last Vital Signs Temp 97.5 F L 08/28/23 09:38 Pulse 92 08/28/23 09:38 Resp 18 08/28/23 09:38 BP 173/81 H 08/28/23 09:38 Pulse Ox 100 08/28/23 09:38 O2 Del Method Room Air 08/28/23 09:38 Allergies Allergy/AdvReac Type Severity Reaction Status Date / Time pregabalin [From Lyrica] Allergy Mild edema Verified 08/28/23 09:35 amoxicillin Allergy Unknown ITCHING Verified 08/28/23 09:35 nifedipine Allergy Unknown VOMITING Verified 08/28/23 09:35 tramadol Allergy Swelling Verified 08/28/23 09:35 gabapentin AdvReac Mild edema Verified 08/28/23 09:35 Home Medications Medication Instructions Recorded Confirmed Type aspirin 81 mg tablet,delayed 81 mg PO DAILY 01/27/20 08/15/23 History release (Adult Low Dose Aspirin) ascorbic acid (vitamin C) 500 mg 500 mg PO DAILY 09/07/20 08/15/23 History tablet,extended release propylene glycol 0.6 % eye drops 1 drp EACH EYE BID PRN dryness 01/03/21 08/15/23 History (Systane Complete) lidocaine 5 % topical patch 1 patch topical DAILY PRN Back 06/07/22 08/15/23 Rx pain #30 ea hyoscyamine sulfate 0.125 mg 0.125 mg sublingual DAILY PRN 08/17/22 08/15/23 Rx sublingual tablet (Levsin/SL) dyspepsia #30 tabs lisinopril 10 mg tablet 10 mg PO BID #180 ea 01/24/23 08/15/23 Rx acetaminophen 500 mg tablet 1,000 mg PO BID 08/15/23 08/15/23 History (Acetaminophen Extra Strength) atorvastatin 20 mg tablet 20 mg PO DAILY 08/15/23 08/15/23 History carvedilol 3.125 mg tablet 6.25 mg PO Q12H 08/15/23 08/15/23 History cholecalciferol (vitamin D3) 25 25 mcg PO BID 08/15/23 08/15/23 History mcg (1,000 unit) capsule furosemide 20 mg tablet 10 mg PO BID 08/15/23 08/15/23 History levothyroxine 50 mcg tablet 50 mcg PO DAILY 08/15/23 08/15/23 History mecobalamin (vitamin B12) 1,000 1,000 mcg sublingual BID 08/15/23 08/15/23 History mcg disintegrating tablet,sublingual omeprazole 40 mg capsule,delayed 40 mg PO DAILY 08/15/23 08/15/23 History release psyllium husk 3.4 gram/5.4 gram 1 tbsp PO EVERY OTHER DAY 08/15/23 08/15/23 History oral powder (Metamucil) hydrocodone 5 mg-acetaminophen 325 1 tablet PO TID PRN pain #60 tabs 08/20/23 08/28/23 Rx mg tablet Patient hx anesthesia problems: none Family hx anesthesia problems: none Results Review: All pre-operative results and documents have been reviewed as part of the pre-operative evaluation. [facility] Past Medical History Medical History Abnormal EKG Anemia BMI 23.0-23.9, adult BMI 24.0-24.9, adult BMI 25.0-25.9,adult BMI 26.0-26.9,adult BRBPR (bright red blood per rectum) Chest discomfort Chest discomfort Chronic low back pain CKD (chronic kidney disease) Colitis Combined abdominal and pelvic pain Constipation Diarrhea Encounter for Medicare annual wellness exam Encounter for routine adult health examination with abnormal findings Encounter for routine adult health examination without abnormal findings Gastroesophageal reflux disease Generalized weakness Grade II diastolic dysfunction Echocardiogram in January 2020 showed normal left ventricular chamber size and dimension with normal systolic function and an estimated ejection fraction of 60 to 65%. Grade 2 diastolic dysfunction also noted. Has well water in home History of colitis History of pancreatitis Hospital discharge follow-up Hyperlipidemia Hypothyroidism Left chest pressure Lower abdominal pain Nausea and vomiting in adult On shelter drug therapy Pancreatic duct dilated Pedal edema Pre-diabetes Pulmonary hypertension Echocardiogram in January 2020 showed mild pulmonary hypertension with
[2023-08-28 11:05] VITALS: BP 122/64; PULSE 85; RESP 22; O2SAT 99
[2023-08-28 11:15] VITALS: BP 144/73; PULSE 85; RESP 24; O2SAT 100
[2023-08-28 11:25] VITALS: BP 158/64; PULSE 85; RESP 20; O2SAT 100
== END 2023-08-28 11:38 | disposition home or self-care (01) ==
PROVIDERS: PCP Internal Medicine; Visit Provider Internal Medicine Gastroenterology
PROC: 0DJD8ZZ Inspection of Lower Intestinal Tract, Via Natural or Artificial Opening Endoscopic (ICD-10-PCS; CPT 45378; principal; 2023-08-28 10:45)
DX: R19.5 Other fecal abnormalities (principal); K64.8 Other hemorrhoids; D64.9 Anemia, unspecified; H04.129 Dry eye syndrome of unspecified lacrimal gland; M54.9 Dorsalgia, unspecified; K21.9 Gastro-esophageal reflux disease without esophagitis; K59.00 Constipation, unspecified; N18.9 Chronic kidney disease, unspecified; E78.5 Hyperlipidemia, unspecified; E03.9 Hypothyroidism, unspecified; R10.13 Epigastric pain; Z79.82 Long term (current) use of aspirin; Z79.891 Long term (current) use of opiate analgesic
CPT/HCPCS: 45378; J2704; J7120

== ENCOUNTER 2023-11-09 14:58 | Outpatient (CLI) | payer MEDICARE, SELFPAY ==
[2023-11-09 15:31] LABS: Basophils Absolute Auto 0.1 K/mm3 (0.0-0.1); Basophils Percent Auto 0.9 % (0.2-1.2); Eosinophils Absolute Auto 0.1 K/mm3 (0-0.3); Hematocrit 34.8 % (37.0-47.0); Hemoglobin 11.3 g/dL (12.0-15.0); Immature Granulocyte Absolute 0.01 K/mm3 (0.00-0.031); Immature Granulocyte Percent A 0.1 % (0-0.5); Lymphocytes Absolute Auto 2.72 K/mm3 (0.9-3.2); Mean Corpuscular HGB Conc 32.5 g/dl (32-36); Mean Corpuscular Hemoglobin 31.7 pg (26-34); Mean Corpuscular Volume 97.5 fl (80-100); Mean Platelet Volume 10.1 fl (7.4-10.4); Monocytes Absolute Auto 0.7 K/mm3 (0.1-0.6); Monocytes Percent Auto 9.5 % (2.6-8.5); Neutrophils Absolute Auto 3.4 K/mm3 (1.3-6.7); Neutrophils Percent Auto 48.5 % (45.5-73.1); Platelet Count Result 252 k/mm3 (150-375); Red Blood Count 3.57 M/mm3 (4.2-5.4)
[2023-11-09 15:43] LABS: Anion Gap 6 mmol/L (8-16); Blood Urea Nitrogen 27 mg/dL (7-17); Calcium 9.3 mg/dL (8.4-10.2); Carbon Dioxide 28 mmol/L (22-30); Chloride 107 mmol/L (98-107); Cholesterol 145 mg/dL (0-200); Estimated Glomerular Filt Rate > 60; Glucose 97 mg/dL (65-110); HDL Direct 75 mg/dL; Potassium 4.1 mmol/L (3.4-5.0); Sodium 141 mmol/L (137-145); Triglycerides 145 mg/dL (<150)
[2023-11-09 15:53] LABS: LDL Cholesterol Direct 54 mg/dL
== END 2023-11-09 14:59 | disposition home or self-care (01) ==
LOC: ANHLAB 15:01
PROVIDERS: PCP Internal Medicine; Visit Provider Internal Medicine
DX: E78.5 Hyperlipidemia, unspecified (principal); E03.9 Hypothyroidism, unspecified; I10 Essential (primary) hypertension
CPT/HCPCS: 36415; 80048; 80061; 85025

== ENCOUNTER 2024-01-18 08:43 | Outpatient (CLI) | payer MEDICARE, SELFPAY ==
--- NOTE | ~2024-01-18 | MR_ITS ---
EXAMINATION: MR brain/brain stem wo/w con DATE: 01/18/2024 09:47 INDICATION: Syncope and collapse. TECHNIQUE: Magnetic resonance imaging (MRI) of the brain and brainstem was performed without and with 11 mL MultiHance intravenous contrast. COMPARISON: None. FINDINGS: There is no acute ischemic infarct or intracranial hemorrhage. There is a 10 mm enhancing e xtra-axial mass overlying left parietal lobe, consistent with a meningioma. There are scattered areas of low attenuation in the cerebral white matter, which is within normal limits for the patient's age . The ventricles are normal in size. There is mild mucosal thickening in the paranasal sinuses. There are likely changes of ocular lens replacement surgeries. The mastoid air cells are normal. IMPRESSION: 1. 10 mm meningioma overlying left parietal lobe. Reviewed, dictated and finalized at location A.
== END 2024-01-18 08:44 | disposition home or self-care (01) ==
PROVIDERS: PCP Internal Medicine; Visit Provider Internal Medicine
DX: R55 Syncope and collapse (principal); R42 Dizziness and giddiness; S09.90XA Unspecified injury of head, initial encounter; X58.XXXA Exposure to other specified factors, initial encounter
CPT/HCPCS: 70553; A9577

== ENCOUNTER 2024-01-25 08:41 | Outpatient (CLI) | payer MEDICARE, SELFPAY ==
--- NOTE | 2024-01-25 09:03 | ECHO_ITS ---
Patient Info Name: Angie Awan Age: 88 years : 1935 Gender: Female Ht: 61 in Wt: 120 lbs BSA: 1.54 m2 HR: 73 bpm BP: 169 / 91 mmHg Technical Quality: Good Exam Date: 01/25/2024 9:07 AM Exam Location: Echo Lab Patient Status: Outpatient Admit Date: 01/25/2024 Staff Ordering Physician: Meliton Reid MD [employer] Teamster: Rachel Kingston RDCS Attending Provider: Meliton Reid MD Referring Physician: Franklin CHO; Exam Type: CA echo doppler color flow Study Info Indications R55 - Syncope and collapse Complete two-dimensional, color flow and Doppler transthoracic echocardiogram is performed. Summary 1. Complete two-dimensional, color flow and Doppler transthoracic echocardiogram is performed. 2. Left ventricular chamber dimension is normal. 3. Left ventricular systolic function is normal, estimated at 65-70%. 4. The left ventricular diastolic function is abnormal. 5. E/e' 17 is elevated. 6. There is moderate aortic valve sclerosis. 7. There is mild aortic valve stenosis with a peak velocity of 203 cm/s, mean gradient of 8 mmHg, and aortic valve area of 1.7 cm2. 8. There is trace aortic valve regurgitation. 9. The mitral valve has mildly calcified annulus. 10. There is mild mitral valve regurgitation. 11. There is trace tricuspid valve regurgitation. 12. Mild pulmonary hypertension, estimated pulmonary arterial systolic pressure is 45 mmHg. Left Ventricle E/e' 17 is elevated. Left ventricular chamber dimension is normal. Left ventricular systolic function is normal, estimated at 65-70%. The left ventricular diastolic function is abnormal. Right Ventricle Right ventricular chamber dimension is normal. Right ventricular systolic function is normal. Left Atria Left atrial chamber dimension is normal. Right Atria Right atrial chamber dimension is normal. Aortic Valve The aortic valve is trileaflet. There is moderate aortic valve sclerosis. There is mild aortic valve stenosis with a peak velocity of 203 cm/s, mean gradient of 8 mmHg, and aortic valve area of 1.7 cm2. There is trace aortic valve regurgitation. Pulmonic Valve There is no pulmonic regurgitation. Mitral Valve The mitral valve has mildly calcified annulus. There is no mitral valve stenosis. There is mild mitral valve regurgitation. Tricuspid Valve There is trace tricuspid valve regurgitation. Mild pulmonary hypertension, estimated pulmonary arterial systolic pressure is 45 mmHg. Pericardium/Pleural There is no pericardial effusion. Inferior Vena Cava Normal inferior vena cava with >50% collapse upon inspiration consistent with normal right atrial pressure, 5 mmHg. Aorta The aortic root size at the sinus of Valsalva is normal. Left Ventricular Outflow Tract Name Value Normal LVOT 2D LVOT Diameter 1.9 cm LVOT Doppler LVOT Peak Gradient 4 mmHg LVOT Mean Gradient 2 mmHg LVOT VTI 28 cm LVOT VTI/AV VTI Ratio 0.6 LVOT Stroke Volume 83 ml LVOT CO 6.7 l/min LVOT CI 4.4 l/min/m2 Pulmonic Valve
--- NOTE | 2024-01-29 14:47 | WPDNEUROLOGY ---
Neurology EEG Report General Information Date of Study: 01/25/24 TEST eeg DIAGNOSIS syncope and collapse CONDITION OF RECORDING awake drowsy and sleep EEG NUMBER [id number] CLINICAL HISTORY patient reports about a month ago she was in her kitchen having breakfast when she lost consciousness. Had no warning signs before and felt very weak for several hours afterwards. EEG DESCRIPTION Low-voltage 15 to 21 hertz per 2nd beta activity seen admixed with multiple muscle artifacts and poor michell posterior gradient. Bilateral symmetrical sleep activity is noted with symmetrical sleep spindles as well, photic stimulation produced normal drive. Hyperventilation not done. Non paroxysmal. Nonfocal. Nonlateralizing. IMPRESSION No significant abnormalities noted. There is tracing is not consistent with seizure disorder clinical correlation recommended. Eeg can be normal in the patient with seizure disorder.
--- NOTE | 2024-01-31 15:46 | WPDHOLTEREM ---
Holter/Event Monitor Holter/Event Monitor Date of procedure: 01/25/24 Holter/Event Procedure: 48 Hr Holter Monitor Indications: Syncope Conclusion: 1. 48 hour holter monitor on 01/25/24. 2. Predominant rhythm is sinus rhythm. HR range 53-129 bpm; average HR 73 bpm. 3. There are 20,058 premature supraventricular complexes, 906 supraventricular couplets, 13,252 supraventricular bigeminy, 951 supraventricular trigeminy. There are 5 episodes of atrial tachycardia, fastest at 136 bpm and longest lasting 5 beats. 4. No premature ventricular complexes. No ventricular tachycardia. 5. No sinoatrial or atrioventricular blocks. No significant pauses greater than 2 seconds. 6. No symptoms available for correlation.
== END 2024-01-25 08:42 | disposition home or self-care (01) ==
LOC: ANHCARD 08:43
PROVIDERS: PCP Internal Medicine; Visit Provider Internal Medicine
DX: I47.10 Supraventricular tachycardia, unspecified (principal); R93.1 Abnormal findings on diagnostic imaging of heart and coronary circulation; I35.8 Other nonrheumatic aortic valve disorders; I34.81 Nonrheumatic mitral (valve) annulus calcification; I34.0 Nonrheumatic mitral (valve) insufficiency; I07.1 Rheumatic tricuspid insufficiency; I27.20 Pulmonary hypertension, unspecified
CPT/HCPCS: 93225; 93226; 93306; 95816

== ENCOUNTER 2024-03-11 14:07 | Outpatient (CLI) | payer MEDICARE, SELFPAY ==
[2024-03-11 15:26] LABS: Free T4 Free Thyroxine 0.99 ng/mL (0.78-2.19); Vitamin D 25 Hydroxy 37.5 ng/mL
[2024-03-11 16:24] LABS: Alanine Aminotransferase 15 U/L (6-35); Albumin Level 4.3 g/dL (3.5-5.1); Alkaline Phosphatase 79 U/L (38-126); Anion Gap 8 mmol/L (4-12); Aspartate Amino Transferase 26 U/L (14-36); Bilirubin,Total 0.4 mg/dL (0.2-1.3); Blood Urea Nitrogen 24 mg/dL (7-17); Calcium 9.8 mg/dL (8.4-10.2); Carbon Dioxide 25 mmol/L (22-30); Chloride 107 mmol/L (98-107); Cholesterol 136 mg/dL (0-200); Estimated Glomerular Filt Rate > 60; Glucose 97 mg/dL (65-110); HDL Direct 63 mg/dL; Potassium 4.6 mmol/L (3.4-5.0); Sodium 140 mmol/L (137-145); Triglycerides 124 mg/dL (<150)
[2024-03-11 16:35] LABS: LDL Cholesterol Direct 51 mg/dL
--- NOTE | 2024-03-17 14:34 | WPDHOLTEREM ---
Holter/Event Monitor Holter/Event Monitor Date of procedure: 03/17/24 Holter/Event Procedure: 48 Hr Holter Monitor Diagnosis: Syncope Indications: Evaluation of a rhythm Image/Tracing Quality: Favor Finding: The basic rhythm is sinus with frequent atrial ectopic activity. AK QRS and QT intervals are normal. The heart rate varies from a minimum of 43 to a maximum of 86 the average rate was 61. There were no significant pauses identified or examples of abnormal AV conduction. The longest RR interval seen was 1.7 seconds. Supraventricular ectopic activity consists of frequent PACs seen during entire exam. There were no runs of SVT in the were no examples of atrial fibrillation. Ventricular ectopic activity was extremely rare consisting of only 1 single PVC during the entire exam The patient returned a diary in which there were no entries made, presumably there were no symptoms Conclusion: 1. Normal sinus rhythm with normal heart rate variability 2. Frequent atrial ectopic activity 3. No atrial fibrillation Dwain Ward MD [facility]
== END 2024-03-11 14:08 | disposition home or self-care (01) ==
PROVIDERS: PCP Internal Medicine; Visit Provider Internal Medicine
DX: I49.9 Cardiac arrhythmia, unspecified (principal); E78.5 Hyperlipidemia, unspecified; E03.9 Hypothyroidism, unspecified; I10 Essential (primary) hypertension; E55.9 Vitamin D deficiency, unspecified
CPT/HCPCS: 36415; 80053; 80061; 82306; 84439; 84443; 93225; 93226

== ENCOUNTER 2024-08-20 10:00 | Outpatient (CLI) | payer MEDICARE, SELFPAY ==
[2024-08-20 11:10] LABS: Alanine Aminotransferase 15 U/L (6-35); Albumin Level 4.1 g/dL (3.5-5.1); Alkaline Phosphatase 61 U/L (38-126); Anion Gap 11 mmol/L (4-12); Aspartate Amino Transferase 32 U/L (14-36); Bilirubin,Total 0.5 mg/dL (0.2-1.3); Blood Urea Nitrogen 20 mg/dL (7-17); Calcium 9.7 mg/dL (8.4-10.2); Carbon Dioxide 22 mmol/L (22-30); Chloride 107 mmol/L (98-107); Cholesterol 130 mg/dL (0-200); Estimated Glomerular Filt Rate > 60; Glucose 129 mg/dL (65-110); HDL Direct 63 mg/dL; Potassium 3.9 mmol/L (3.4-5.0); Sodium 140 mmol/L (137-145); Triglycerides 149 mg/dL (<150)
[2024-08-20 11:21] LABS: LDL Cholesterol Direct 32 mg/dL
[2024-08-20 12:05] LABS: Free T4 Free Thyroxine 0.89 ng/mL (0.78-2.19); Vitamin D 25 Hydroxy 49.8 ng/mL
[2024-08-20 13:21] LABS: Add Urine Microscopic? YES; Appearance Urine Clear (Clear); Bacteria Urine None Seen /hpf; Bilirubin Urine Negative (Negative); Blood Urine Negative (Negative); Color Urine Yellow (Yellow); Glucose Urine UA Negative (Negative); Ketones Urine Trace mg/dL (Negative); Leukocyte Esterase Ur 2+ LEU/UL (Negative); Nitrate Urine Negative (Negative); Non Pathogenic Casts 0-2; Protein Urine Negative (Negative); RBC Urine 0-2 /hpf (0-2); Specific Grav Ur 1.021 (1.001-1.035); Squamous Epithelial Cell Urine Occasional /hpf (Few); Urobilinogen Urine 0.2 mg/dL (<2.0)
== END 2024-08-20 10:01 | disposition home or self-care (01) ==
PROVIDERS: PCP Internal Medicine; Visit Provider Internal Medicine
DX: I10 Essential (primary) hypertension (principal); Z79.899 Other long term (current) drug therapy; E03.9 Hypothyroidism, unspecified; E78.5 Hyperlipidemia, unspecified; E55.9 Vitamin D deficiency, unspecified
CPT/HCPCS: 36415; 80053; 80061; 81001; 82306; 84439; 84443